=== PATIENT | female | born 1995 | race Caucasian/White ===

== ENCOUNTER 2017-02-05 14:02 | Inpatient (IN) | payer SELFPAY ==
[2017-02-05] MEDS ORDERED: NORMAL SALINE 1000 ML 1,000 ML IV ONE (14:59)
--- NOTE | 2017-02-05 15:00 | ER Document Report ---
ED Medical Screen (RME) - General Mode of Arrival: Ambulatory Information source: Patient TRAVEL OUTSIDE OF THE [place] IN LAST 30 DAYS: No - HPI Patient complains to provider of: Vomiting and shortness of breath Onset: This morning Associated Symptoms: Other - see notes above - Related Data Smoking: Other - former smoker Frequency of alcohol use: Occasional Drug Abuse: None <ANGEL ROMO - Last Filed: 02/05/17 15:29> <TY WEEKS - Last Filed: 02/05/17 21:19> - General Chief Complaint: High Blood Sugar Stated Complaint: DIFFICULTY BREATHING Time Seen by Provider: 02/05/17 14:52 Notes: 21-year-old female with history of diabetes mellitus type I presents to the ED complaining of vomiting, shortness of breath, increased urine output, and feeling faint this morning. Patient reports that she has been monitoring her blood glucose levels and they have been running high historically. Patient is unsure when she last checked her levels or when her last reading was 'HI'. Patient reports that she has asked her physician to change her insulin, but the physician says that is unnecessary. Patient denies abdominal pain. Patient also claims that she has been stressed lately which could be contributing to her elevated blood glucose. (ANGEL ROMO) - Related Data Allergies/Adverse Reactions: No Known Allergies Allergy (Verified 02/05/17 14:07) Past Medical History - General Information source: Patient - Social History Cigarette use (# per day): No Chew tobacco use (# tins/day): No Frequency of alcohol use: None Drug Abuse: None Family history: Reviewed & Not Pertinent Pulmonary Medical History: Denies: Hx Asthma Endocrine Medical History: Reports: Hx Diabetes Mellitus Type 1 Renal/ Medical History: Denies: Hx Peritoneal Dialysis GI Medical History: Denies: Hx Gastroesophageal Reflux Disease Past Surgical History: Reports: Hx Appendectomy - Immunizations Immunizations up to date: Yes Hx Diphtheria, Pertussis, Tetanus Vaccination: Yes <ANGEL ROMO - Last Filed: 02/05/17 15:29> Review of Systems - Review of Systems Constitutional: No symptoms reported EENT: No symptoms reported Cardiovascular: See HPI, Lightheaded Respiratory: See HPI, Short of breath Gastrointestinal: No symptoms reported. denies: Abdominal pain Genitourinary: See HPI, Frequency Female Genitourinary: No symptoms reported Musculoskeletal: No symptoms reported Skin: No symptoms reported Hematologic/Lymphatic: No symptoms reported Neurological/Psychological: See HPI, Other - stress -: Yes All other systems reviewed and negative <ANGEL ROMO - Last Filed: 02/05/17 15:29> Physical Exam - General General appearance: Alert In distress: None - HEENT Head: Normocephalic, Atraumatic Eyes: Normal Extraocular movements intact: Yes Pupils: PERRL Mouth/Lips: Other - lips cracked Mucous membranes: Dry - Respiratory Respiratory status: No respiratory distress Breath sounds: Normal - Cardiovascular Rhythm: Regular, Tachycardia - mild Murmur: No Friction rub: No Gallop: None auscultated - Abdominal Inspection: Normal Distension: No distension Bowel sounds: Normal Tenderness: Nontender - Neurological Neuro grossly intact: Yes Cognition: Confused - mild confusion on exam Orientation: AAOx4 <ANGEL ROMO - Last Filed: 02/05/17 15:29> Course - Laboratory Result Diagrams: 02/05/17 15:35 02/05/17 19:05 <TY WEEKS - Last Filed: 02/05/17 21:19> - Vital Signs Vital signs: Temp Pulse Resp BP Pulse Ox 98.2 F 83 18 109/68 100 02/05/17 19:54 02/05/17 19:54 02/05/17 19:54 02/05/17 19:54 02/05/17 19:54 - Laboratory Laboratory results interpreted by me: 02/05/17 02/05/17 02/05/17 15:09 15:35 15:35 RBC 5.64 H Hgb 16.2 H Hct 52.1 H MCHC 31.1 L RDW 15.6 H VBG pH VBG pCO2 VBG HCO3 Sodium 136.1 L Potassium 5.5 H Carbon Dioxide < 5 L* Glucose 343 H POC Glucose 383 H Direct Bilirubin 0.6 H Alkaline Phosphatase 154 H Total Protein 9.6 H Albumin 5.3 H Urine Protein Urine Glucose (UA) Urine Ketones 02/05/17 02/05/17 02/05/17 15:35 17:03 17:20 RBC Hgb Hct MCHC RDW VBG pH 7.05 L* VBG pCO2 23.7 L VBG HCO3 6.4 L Sodium Potassium Carbon Dioxide Glucose POC Glucose 310 H Direct Bilirubin Alkaline Phosphatase Total Protein Albumin Urine Protein 30 H Urine Glucose (UA) >=500 H Urine Ketones 80 H Doctor's Discharge <ANGEL ROMO - Last Filed: 02/05/17 15:29> <TY WEEKS - Last Filed: 02/05/17 21:19> - Discharge Clinical Impression: DKA (diabetic ketoacidoses) Scribe Documentation - Scribe Written by Scribe:: Sher Myrick, 02/05/2017 1552 acting as scribe for :: Julieta <ANGEL ROMO - Last Filed: 02/05/17 15:29>
[2017-02-05 16:09] LABS: ABSOLUTE BASOPHILS # (AUTO) 0.1 10^3/uL (0.0-0.2); ABSOLUTE LYMPHOCYTES (AUTO) 2.6 10^3/uL (0.5-4.7); ABSOLUTE MONOCYTES (AUTO) 0.4 10^3/uL (0.1-1.4); ABSOLUTE NEUT (AUTO) 6.7 10^3/uL (1.7-8.2); BASOPHILS % (AUTO) 0.7 % (0-2); EOSINOPHILS % (AUTO) 0.1 % (0-6); HEMATOCRIT 52.1 % (36.0-47.0); HEMOGLOBIN 16.2 g/dL (12.0-15.5); HGB HCT DIFFERENCE -3.5; LYMPHOCYTES % (AUTO) 26.8 % (13-45); MEAN CORPUSCULAR HEMOGLOBIN 28.8 pg (27.0-33.4); MEAN CORPUSCULAR HGB CONC 31.1 g/dL (32.0-36.0); MEAN CORPUSCULAR VOLUME 92 fl (80-97); MONOCYTES % (AUTO) 3.9 % (3-13); RED BLOOD COUNT 5.64 10^6/uL (3.72-5.28); RED CELL DISTRIBUTION WIDTH 15.6 % (11.5-14.0); SEGMENTED NEUTROPHILS % (AUTO) 68.5 % (42-78); WHITE BLOOD COUNT 9.8 10^3/uL (4.0-10.5)
[2017-02-05 16:14] LABS: APPEARANCE,URINE CLEAR; BILIRUBIN,URINE NEGATIVE (NEGATIVE); GLUCOSE, URINE >=500 mg/dL (NEGATIVE); KETONES,URINE 80 mg/dL (NEGATIVE); LEUKOCYTE ESTERASE,URINE NEGATIVE (NEGATIVE); NITRITE,URINE NEGATIVE (NEGATIVE); PROTEIN,URINE 30 mg/dL (NEGATIVE); URINE SPECIFIC GRAVITY 1.023; UROBILINOGEN,URINE NEGATIVE mg/dL (<2.0)
[2017-02-05 16:16] LABS: ALANINE AMINOTRANSFERASE 25 U/L (9-52); ALBUMIN 5.3 g/dL (3.5-5.0); ALKALINE PHOSPHATASE 154 U/L (38-126); ASPARTATE AMINO TRANSFERASE 23 U/L (14-36); BILIRUBIN,DIRECT 0.6 mg/dL (0.0-0.4); BILIRUBIN,TOTAL 0.6 mg/dL (0.2-1.3); BLOOD UREA NITROGEN 14 mg/dL (7-20); CALCIUM 9.2 mg/dL (8.4-10.2); CHLORIDE 100 mmol/L (98-107); CREATININE RESULT 0.62 mg/dL (0.52-1.25); GLUCOSE 343 mg/dL (75-110); POTASSIUM 5.5 mmol/L (3.6-5.0); SODIUM 136.1 mmol/L (137-145); TOTAL PROTEIN 9.6 g/dL (6.3-8.2)
[2017-02-05 16:26] LABS: CARBON DIOXIDE < 5 mmol/L (22-30)
[2017-02-05] MEDS ORDERED: INSULIN REG, HUMAN 100 UNIT/ML 3 ML VIAL (PYX) IV ONE ×2 (17:00→17:49)
--- NOTE | 2017-02-05 17:03 | ER Document Report ---
ED Blood Sugar Problem - General Chief Complaint: High Blood Sugar Stated Complaint: DIFFICULTY BREATHING Time Seen by Provider: 02/05/17 14:52 Mode of Arrival: Ambulatory Information source: Patient Notes: This is a 21-year-old female with type 1 diabetes and history of DKA who presents with high blood sugar and vomiting. She states that she feels similar to her prior episodes of DKA. She states she has felt poorly for the past few days but the vomiting became severe this morning. She has been unable to tolerate PO day. She states that at home her blood sugar has been running "high ". She reports compliance with her insulin regimen states that she takes 20 units of 70/30 twice daily. She did take her insulin this morning. She denies any fevers or chills. She has had a mild cough which is been nonproductive. No dysuria. Her last menstrual period was about 4 weeks ago. TRAVEL OUTSIDE OF THE [place] IN LAST 30 DAYS: No - Related Data Allergies/Adverse Reactions: No Known Allergies Allergy (Verified 02/05/17 14:07) Past Medical History - General Information source: Patient - Social History Smoking Status: Unknown if Ever Smoked Cigarette use (# per day): No Chew tobacco use (# tins/day): No Frequency of alcohol use: None Drug Abuse: None Family History: DM - On the mother's side. Patient has suicidal ideation: No Patient has homicidal ideation: No Pulmonary Medical History: Denies: Hx Asthma Endocrine Medical History: Reports: Hx Diabetes Mellitus Type 1 Renal/ Medical History: Denies: Hx Peritoneal Dialysis GI Medical History: Denies: Hx Gastroesophageal Reflux Disease Past Surgical History: Reports: Hx Appendectomy - Immunizations Immunizations up to date: Yes Hx Diphtheria, Pertussis, Tetanus Vaccination: Yes Hx Pneumococcal Vaccination: 06/25/13 Review of Systems - Review of Systems Constitutional: denies: Chills, Fever EENT: No symptoms reported Cardiovascular: No symptoms reported. denies: Chest pain Gastrointestinal: See HPI Genitourinary: No symptoms reported. denies: Dysuria Musculoskeletal: No symptoms reported Skin: No symptoms reported Hematologic/Lymphatic: No symptoms reported Neurological/Psychological: No symptoms reported Physical Exam - Vital signs Vitals: Temp Pulse Resp BP Pulse Ox 97.7 F 101 H 24 H 137/100 H 100 02/05/17 14:05 02/05/17 14:05 02/05/17 14:05 02/05/17 14:05 02/05/17 14:05 - Notes Notes: PHYSICAL EXAMINATION: GENERAL: somewhat ill appearing, alert and conversant HEAD: Atraumatic, normocephalic. EYES: Pupils equal round and reactive to light, extraocular movements intact, sclera anicteric, conjunctiva are normal. ENT: nares patent, oropharynx clear without exudates. Mucous membranes tachy NECK: Normal range of motion LUNGS: Breath sounds clear to auscultation bilaterally and equal. No wheezes rales or rhonchi. HEART: Regular rate and rhythm without murmurs ABDOMEN: Soft, mild diffuse TTP, normoactive bowel sounds. No guarding, no rebound. No masses appreciated. EXTREMITIES: Normal range of motion NEUROLOGICAL: Cranial nerves grossly intact. Normal speech, no gross focal motor or sensory deficits PSYCH: Normal mood, normal affect. SKIN: Warm, Dry, normal turgor, no rashes or lesions noted. Course - Vital Signs Vital signs: Temp Pulse Resp BP Pulse Ox 98.2 F 83 18 109/68 100 02/05/17 21:00 02/05/17 21:00 02/05/17 21:00 02/05/17 21:00 02/05/17 21:00 - Laboratory Result Diagrams: 02/05/17 15:35 02/05/17 22:35 Laboratory results interpreted by me: 02/05/17 02/05/17 02/05/17 15:09 15:35 15:35 RBC 5.64 H Hgb 16.2 H Hct 52.1 H MCHC 31.1 L RDW 15.6 H VBG pH VBG pCO2 VBG HCO3 Sodium 136.1 L Potassium 5.5 H Carbon Dioxide < 5 L* Glucose 343 H POC Glucose 383 H Direct Bilirubin 0.6 H Alkaline Phosphatase 154 H Total Protein 9.6 H Albumin 5.3 H Urine Protein Urine Glucose (UA) Urine Ketones 02/05/17 02/05/17 02/05/17 15:35 17:03 17:20 RBC Hgb Hct MCHC RDW VBG pH 7.05 L* VBG pCO2 23.7 L VBG HCO3 6.4 L Sodium Potassium Carbon Dioxide Glucose POC Glucose 310 H Direct Bilirubin Alkaline Phosphatase Total Protein Albumin Urine Protein 30 H Urine Glucose (UA) >=500 H Urine Ketones 80 H - Diagnostic Test Radiology reviewed: Reports reviewed Critical Care Note - Critical Care Note Total time excluding time spent on procedures (mins): 35 - minutes of critical care time spent in direct contact evaluating and reevaluating the patient, treating symptoms, reviewing labs and studies and speaking with family and consultants excluding any procedures Discharge - Discharge Clinical Impression: DKA (diabetic ketoacidoses) Qualifiers: Diabetes mellitus type: type 1 Diabetes mellitus complication detail: without coma Qualified Code(s): E10.10 - Type 1 diabetes mellitus with ketoacidosis without coma Condition: Serious Disposition: ADMITTED INPATIENT Admitting Provider: Hospitalist - Dr. Queen Unit Admitted: [facility]
[2017-02-05 17:30] LABS: VENOUS BLOOD BASE EXCESS -22.6 mmol/L; VENOUS BLOOD HCO3 6.4 mmol/L (20-32); VENOUS BLOOD PCO2 23.7 mmHg (35-63)
[2017-02-05 17:31] LABS: VENOUS BLOOD PH 7.05 (7.30-7.42)
[2017-02-05] MEDS ORDERED: NORMAL SALINE 1000 ML 1,000 ML IV PRN (18:19)
[2017-02-05] MEDS ORDERED: DEXTROSE 50%-WATER 25 GM/50 ML DISP.SYRIN IV PRN ×2 (18:19)
[2017-02-05] MEDS ORDERED: GLUCAGON,HUMAN RECOMB 1 MG INJ IM PRN (18:19)
[2017-02-05] MEDS ORDERED: DEXTROSE 40% GEL 15 GM TUBE PO PRN ×2 (18:19)
[2017-02-05] MEDS ORDERED: DEXTROSE 5%-1/2 NORMAL SALINE 1,000 ML IV PRN (18:24)
[2017-02-05] MEDS ORDERED: ACETAMINOPHEN 325 MG TABLET PO PRN (18:26)
[2017-02-05] MEDS ORDERED: ONDANSETRON HCL INJ/PF 4 MG/2 ML SDV IV PRN (18:26)
--- NOTE | 2017-02-05 18:26 | RADIOLOGY REPORT (SQ) ---
EXAM DESCRIPTION: CHEST SINGLE VIEW COMPLETED DATE/TIME: 02/05/2017 6:16 pm REASON FOR STUDY: DKA COMPARISON: 10/31/2015 EXAM PARAMETERS: NUMBER OF VIEWS: One view. TECHNIQUE: Single frontal radiographic view of the chest acquired. RADIATION DOSE: NA LIMITATIONS: None. FINDINGS: LUNGS AND PLEURA: No opacities, masses or pneumothorax. No pleural effusion. MEDIASTINUM AND HILAR STRUCTURES: No masses. Contour normal. HEART AND VASCULAR STRUCTURES: Heart normal in size. Normal vasculature. BONES: No acute findings. HARDWARE: None in the chest. OTHER: No other significant finding. IMPRESSION: NO ACUTE RADIOGRAPHIC FINDING IN THE CHEST. TECHNICAL DOCUMENTATION: JOB ID: [id number]
--- NOTE | 2017-02-05 18:48 | PDOC H&P ---
History of Present Illness Admission Date/PCP: 02/05/17 18:06 Patient complains of: Nausea and vomiting History of Present Illness: COLEEN ADAMS is a 21 year old female with history of insulin-dependent diabetes mellitus, presents to the hospital because of nausea and vomiting of one days duration. There is no dysuria urgency or frequency. No diarrhea or constipation. No vaginal discharge or bleeding. Patient is a little lightheaded and dizzy. The patient apparently does not see her physician for follow-up. She had history of hydradenitis suppurativa on her axilla as well as on the groin and in the breast in the past but currently denies having any rash or skin infection at all. Patient reports that she can refill her 7030 insulin [id number]. Her sugar ranges between 300-400 on a daily basis. She attributes this elevation to a lot of stress. She denies sinus congestion or headache. There is no sore throat. She has occasional cough but nothing more than usual. She denies any chest congestion. She was started to breathe hard this morning but denies any specific chest congestion or shortness of breath. Patient reports that she had similar episodes in the past when she had DKA. She presents to the emergency room because of the nausea and vomiting that happened earlier today. In the ER her pH was 7.05. Anion gap is greater than 30. Blood sugar however is 343. 4 units of intravenous insulin bolus was given and the patient was started on intravenous fluid and intravenous drip of insulin was ordered by the emergency room attending. The patient was then referred for admission Past Medical History Past Medical History: Medication reconciliation pending verification from the patient's pharmacist Pulmonary Medical History: Denies: Asthma Endocrine Medical History: Reports: Diabetes Mellitus Type 1 GI Medical History: Denies: Gastroesophageal Reflux Disease Skin Medical History: Reports: Other - Hydradenitis suppurativa Past Surgical History Past Surgical History: Reports: Appendectomy, Orthopedic Surgery - B/L FEET, Other - Laser surgery to the high Social History Information Source: Patient Smoking Status: Former Smoker Frequency of Alcohol Use: None Hx Recreational Drug Use: No Drugs: None Hx Prescription Drug Abuse: No Family History Family History: DM - On the mother's side. Parental Family History Reviewed: Yes Children Family History Reviewed: Yes Sibling(s) Family History Reviewed.: Yes Medication/Allergy Home Medications: Hum Insulin NPH/Reg Insulin Hm [Insulin 70-30 (NPH/Reg) 100 unit/mL] 20 unit SUBCUT BIDACBS #1 pkg 05/04/16 Allergies/Adverse Reactions: No Known Allergies Allergy (Verified 02/05/17 14:07) Review of Systems Constitutional: PRESENT: weakness - Generalized. ABSENT: chills, fever(s), headache(s), night sweats, weight gain, weight loss Eyes: ABSENT: visual disturbances Ears: ABSENT: hearing changes Nose, Mouth, and Throat: ABSENT: mouth pain, sore throat Cardiovascular: ABSENT: chest pain, dyspnea on exertion, edema, orthropnea, palpitations Respiratory: PRESENT: cough - Minimal, dyspnea. ABSENT: hemoptysis Gastrointestinal: ABSENT: abdominal pain, coffee ground emesis, constipation, diarrhea, dysphagia, hematemesis, hematochezia, melena, nausea, vomiting Genitourinary: ABSENT: difficulty urinating, dysuria, hematuria Musculoskeletal: ABSENT: joint swelling Integumentary: ABSENT: pruritus, rash, wounds Neurological: PRESENT: dizziness. ABSENT: abnormal gait, abnormal speech, confusion, focal weakness, syncope Psychiatric: ABSENT: anxiety, depression, homidical ideation, suicidal ideation Endocrine: ABSENT: cold intolerance, heat intolerance, polydipsia, polyuria Hematologic/Lymphatic: ABSENT: easy bleeding, easy bruising Physical Exam Vital Signs: Temp Pulse Resp BP Pulse Ox 97.7 F 101 H 20 137/100 H 99 02/05/17 14:06 02/05/17 14:06 02/05/17 17:10 02/05/17 14:06 02/05/17 14:06 General appearance: PRESENT: no acute distress, cooperative, well-developed, well-nourished Head exam: PRESENT: atraumatic, normocephalic Eye exam: PRESENT: conjunctiva pink, EOMI, PERRLA. ABSENT: scleral icterus Ear exam: PRESENT: normal external ear exam Mouth exam: PRESENT: dry mucosa, neck supple, tongue midline Neck exam: ABSENT: carotid bruit, JVD, lymphadenopathy, thyromegaly Respiratory exam: PRESENT: clear to auscultation stephan. ABSENT: rales, rhonchi, wheezes Cardiovascular exam: PRESENT: RRR. ABSENT: diastolic murmur, rubs, systolic murmur Pulses: PRESENT: normal dorsalis pedis pul Vascular exam: PRESENT: normal capillary refill GI/Abdominal exam: PRESENT: normal bowel sounds, soft. ABSENT: distended, guarding, mass, organolmegaly, rebound, tenderness Rectal exam: PRESENT: deferred Extremities exam: PRESENT: full ROM. ABSENT: calf tenderness, clubbing, pedal edema Neurological exam: PRESENT: alert, awake, oriented to person, oriented to place , oriented to time, oriented to situation, CN II-XII grossly intact. ABSENT: motor sensory deficit Psychiatric exam: PRESENT: appropriate affect, normal mood. ABSENT: homicidal ideation, suicidal ideation Skin exam: PRESENT: dry, intact, warm. ABSENT: cyanosis, rash Results Impressions: Chest X-Ray 02/05/17 17:45 IMPRESSION: NO ACUTE RADIOGRAPHIC FINDING IN THE CHEST. Assessment & Plan - Diagnosis (1) DKA (diabetic ketoacidoses) Qualifiers: Diabetes mellitus type: type 1 Diabetes mellitus complication detail: without coma Qualified Code(s): E10.10 - Type 1 diabetes mellitus with ketoacidosis without coma Is this a current diagnosis for this admission?: Yes (2) Hyperkalemia Is this a current diagnosis for this admission?: Yes (3) Dehydration Is this a current diagnosis for this admission?: Yes - Time Time Spent: 50 to 70 Minutes - Inpatient Certification Based on my medical assessment, after consideration of the patient's comorbidities, presenting symptoms, or acuity I expect that the services needed warrant INPATIENT care.: Yes I certify that my determination is in accordance with my understanding of Medicare's requirements for reasonable and necessary INPATIENT services [42 CFR 412.3e].: Yes Medical Necessity: Significant Comorbidiites Make Outpatient Treatment Too Risky , Need Close Monitoring Due to Risk of Patient Decompensation, Need For IV Fluids, Need For Continuous Telemetry Monitoring, Risk of Complication if Not Cared For in Hospital, Risk of Diagnosis Which Will Require Inpatient Eval/Care/ Monitoring Post Hospital Care: D/C Customer Servicer Documentation - Plan Summary Plan Summary: The patient will be admitted to [facility]. We will hydrate the patient with normal saline. We will begin insulin drip and serially monitor chemistries every 4 hours. I expect her potassium to trend down with insulin drip and IV hydration. In the meantime his blood sugar reaches below 250 we will change IV fluid to dextrose containing solution. We will continue current management until anion gap normalized. In the meantime I will try the patient on liquid diet. DVT prophylaxis with Lovenox will be placed. We will get diabetic teaching involved. Further testing depends on the initial evaluations outlined above.
[2017-02-05] MEDS: NORMAL SALINE 100 ML with INSULIN REGULAR, HUMAN 100 UNIT IV PRN ×4 (19:15→20:41)
[2017-02-05 19:31] LABS: BLOOD UREA NITROGEN 12 mg/dL (7-20); CALCIUM 9.2 mg/dL (8.4-10.2); CHLORIDE 104 mmol/L (98-107); CREATININE RESULT 0.55 mg/dL (0.52-1.25); GLUCOSE 227 mg/dL (75-110); POTASSIUM 5.2 mmol/L (3.6-5.0); SODIUM 139.9 mmol/L (137-145)
[2017-02-05 19:35] LABS: URINE BARBITURATES SCREEN NEGATIVE; URINE METHADONE SCREEN NEGATIVE; URINE OPIATES LOW NEGATIVE; URINE PHENCYCLIDINE SCREEN NEGATIVE
[2017-02-05 19:45] LABS: CARBON DIOXIDE < 5 mmol/L (22-30)
[2017-02-05] MEDS ORDERED: NORMAL SALINE 1000 ML 2,000 ML IV ONE (19:57)
[2017-02-05 20:13] LABS: ADD ON TESTING BLD IN LAB ACKNOWLEDGE
[2017-02-05 20:28] LABS: MAGNESIUM 2.1 mg/dL (1.6-2.3)
[2017-02-05 20:30] LABS: ARTERIAL BLOOD BASE EXCESS -18.4 mmol/L; ARTERIAL BLOOD O2 SATURATION 97.8 % (94-98)
[2017-02-05] MEDS: DEXTROSE 5%-NORMAL SALINE 1,000 ML IV PRN (20:41)
[2017-02-05 23:08] LABS: BLOOD UREA NITROGEN 9 mg/dL (7-20); CALCIUM 7.1 mg/dL (8.4-10.2); CHLORIDE 114 mmol/L (98-107); CREATININE RESULT 0.42 mg/dL (0.52-1.25); GLUCOSE 198 mg/dL (75-110)
[2017-02-05 23:13] LABS: ANION GAP 16 (5-19)
[2017-02-05 23:29] LABS: POTASSIUM 3.7 mmol/L (3.6-5.0)
[2017-02-05 23:31] LABS: CARBON DIOXIDE 9 mmol/L (22-30)
[2017-02-06] MEDS ORDERED: POTASSI CL 20 MEQ/50 ML RIDER 20 MEQ/50 ML RTUPB IV ONE ×2 (00:37→04:08)
[2017-02-06] MEDS: DEXTROSE 5%-NORMAL SALINE 1,000 ML IV PRN ×2 (01:27→06:43)
[2017-02-06 03:13] LABS: ANION GAP 9 (5-19); BLOOD UREA NITROGEN 8 mg/dL (7-20); CALCIUM 7.1 mg/dL (8.4-10.2); CARBON DIOXIDE 12 mmol/L (22-30); CHLORIDE 117 mmol/L (98-107); CREATININE RESULT 0.36 mg/dL (0.52-1.25); GLUCOSE 153 mg/dL (75-110); POTASSIUM 3.6 mmol/L (3.6-5.0); SODIUM 138.4 mmol/L (137-145)
[2017-02-06] MEDS: LANSOPRAZOLE 30 MG TAB.RAP.DR PO SCH ×2 (05:03→16:22)
[2017-02-06 06:55] LABS: ABSOLUTE EOSINOPHILS # (AUTO) 0.1 10^3/uL (0.0-0.6); ABSOLUTE LYMPHOCYTES (AUTO) 3.1 10^3/uL (0.5-4.7); ABSOLUTE MONOCYTES (AUTO) 0.7 10^3/uL (0.1-1.4); ABSOLUTE NEUT (AUTO) 5.6 10^3/uL (1.7-8.2); BASOPHILS % (AUTO) 0.5 % (0-2); EOSINOPHILS % (AUTO) 0.8 % (0-6); HEMATOCRIT 37.4 % (36.0-47.0); HGB HCT DIFFERENCE -1.4; LYMPHOCYTES % (AUTO) 33.1 % (13-45); MEAN CORPUSCULAR HEMOGLOBIN 28.6 pg (27.0-33.4); MEAN CORPUSCULAR VOLUME 89 fl (80-97); MONOCYTES % (AUTO) 7.2 % (3-13); RED BLOOD COUNT 4.18 10^6/uL (3.72-5.28); RED CELL DISTRIBUTION WIDTH 15.1 % (11.5-14.0); SEGMENTED NEUTROPHILS % (AUTO) 58.4 % (42-78); WHITE BLOOD COUNT 9.5 10^3/uL (4.0-10.5)
[2017-02-06 07:15] LABS: ANION GAP 8 (5-19); BLOOD UREA NITROGEN 8 mg/dL (7-20); CALCIUM 7.4 mg/dL (8.4-10.2); CARBON DIOXIDE 14 mmol/L (22-30); CHLORIDE 118 mmol/L (98-107); CREATININE RESULT 0.35 mg/dL (0.52-1.25); GLUCOSE 87 mg/dL (75-110); POTASSIUM 3.7 mmol/L (3.6-5.0); SODIUM 139.6 mmol/L (137-145)
[2017-02-06] MEDS: ENOXAPARIN SODIUM INJ 40 MG/0.4 ML DISP.SYRIN SUBCUT SCH (08:11)
--- NOTE | 2017-02-06 09:14 | EKG REPORT ---
SEVERITY:- BORDERLINE ECG - SINUS RHYTHM BORDERLINE PROLONGED QT INTERVAL : Confirmed by: Rodriguez Pittman 06-Feb-2017 09:13:23
[2017-02-06] MEDS ORDERED: INSULIN REG, HUMAN 100 UNIT/ML 3 ML VIAL (PYX) SUBCUT PRN (09:20)
--- NOTE | 2017-02-06 09:34 | PDOC PROGRESS REPORT ---
Subjective Progress Note for:: 02/06/17 Subjective:: Patient is feeling better this morning. No nausea or vomiting reported. Patient wants to eat solid food. No reported respiratory distress or temperature spikes. Anion gap is now normal. Blood sugar below 200. She is on dextrose containing IV fluids. Physical Exam Vital Signs: Temp Pulse Resp BP Pulse Ox 98.3 F 83 12 95/52 L 98 02/06/17 07:09 02/06/17 07:09 02/06/17 07:09 02/06/17 07:09 02/06/17 07:09 Intake & Output 02/05/17 02/06/17 02/07/17 06:59 06:59 06:59 Intake Total 4147 Balance 4147 Weight 58.9 kg General appearance: PRESENT: no acute distress, cooperative Head exam: PRESENT: normocephalic Eye exam: PRESENT: EOMI Mouth exam: PRESENT: moist, neck supple Neck exam: ABSENT: JVD Respiratory exam: PRESENT: clear to auscultation stephan, unlabored. ABSENT: rhonchi, wheezes Cardiovascular exam: PRESENT: RRR. ABSENT: gallop GI/Abdominal exam: PRESENT: normal bowel sounds, soft. ABSENT: distended, tenderness Extremities exam: ABSENT: pedal edema Neurological exam: PRESENT: alert, awake, oriented to situation Skin exam: PRESENT: dry, warm. ABSENT: cyanosis Results Laboratory Results: 02/06/17 06:44 02/06/17 06:44 02/05/17 02/05/17 02/05/17 19:05 19:05 19:05 WBC RBC Hgb Hct MCV MCH MCHC RDW Plt Count Seg Neutrophils % Lymphocytes % Monocytes % Eosinophils % Basophils % Absolute Neutrophils Absolute Lymphocytes Absolute Monocytes Absolute Eosinophils Absolute Basophils Carbonic Acid HCO3/H2CO3 Ratio ABG pH ABG pCO2 ABG pO2 ABG HCO3 ABG O2 Saturation ABG Base Excess FiO2 Sodium 139.9 Potassium 5.2 H Chloride 104 Carbon Dioxide < 5 L* Anion Gap [employer] BUN 12 Creatinine 0.55 Est GFR ( Amer) > 60 Est GFR (Non-Af Amer) > 60 Glucose 227 H Calcium 9.2 Magnesium 2.1 TSH 0.57 02/05/17 02/05/17 02/06/17 20:20 22:35 02:30 WBC RBC Hgb Hct MCV MCH MCHC RDW Plt Count Seg Neutrophils % Lymphocytes % Monocytes % Eosinophils % Basophils % Absolute Neutrophils Absolute Lymphocytes Absolute Monocytes Absolute Eosinophils Absolute Basophils Carbonic Acid 0.59 L HCO3/H2CO3 Ratio 12:1 ABG pH 7.20 L* ABG pCO2 19.7 L* ABG pO2 124.0 H ABG HCO3 7.5 L ABG O2 Saturation 97.8 ABG Base Excess -18.4 FiO2 ROOM AIR Sodium 139.0 138.4 Potassium 3.7 D 3.6 Chloride 114 H 117 H Carbon Dioxide 9 L* 12 L Anion Gap 16 9 BUN 9 8 Creatinine 0.42 L 0.36 L Est GFR ( Amer) > 60 > 60 Est GFR (Non-Af Amer) > 60 > 60 Glucose 198 H 153 H Calcium 7.1 L 7.1 L Magnesium TSH 02/06/17 02/06/17 06:44 06:44 WBC 9.5 RBC 4.18 Hgb 12.0 D Hct 37.4 MCV 89 MCH 28.6 MCHC 32.0 RDW 15.1 H Plt Count 213 Seg Neutrophils % 58.4 Lymphocytes % 33.1 Monocytes % 7.2 Eosinophils % 0.8 Basophils % 0.5 Absolute Neutrophils 5.6 Absolute Lymphocytes 3.1 Absolute Monocytes 0.7 Absolute Eosinophils 0.1 Absolute Basophils 0.0 Carbonic Acid HCO3/H2CO3 Ratio ABG pH ABG pCO2 ABG pO2 ABG HCO3 ABG O2 Saturation ABG Base Excess FiO2 Sodium 139.6 Potassium 3.7 Chloride 118 H Carbon Dioxide 14 L Anion Gap 8 BUN 8 Creatinine 0.35 L Est GFR ( Amer) > 60 Est GFR (Non-Af Amer) > 60 Glucose 87 Calcium 7.4 L Magnesium TSH Impressions: Chest X-Ray 02/05/17 17:45 IMPRESSION: NO ACUTE RADIOGRAPHIC FINDING IN THE CHEST. Assessment & Plan - Diagnosis (1) DKA (diabetic ketoacidoses) Qualifiers: Diabetes mellitus type: type 1 Diabetes mellitus complication detail: without coma Qualified Code(s): E10.10 - Type 1 diabetes mellitus with ketoacidosis without coma Is this a current diagnosis for this admission?: Yes (2) Hyperkalemia Is this a current diagnosis for this admission?: Yes (3) Dehydration Is this a current diagnosis for this admission?: Yes - Time Time Spent with patient: 25-34 minutes - Plan Summary Plan Summary: We will transition the patient to subcutaneous insulin. I will increase her basal insulin however. We will give prandial coverage with Humalog. Transition to before meals at bedtime Accu-Cheks with SSI coverage.and advance her diet. Discontinue dextrose containing IV fluids went off the insulin drip. Continue to monitor electrolytes. Patient reports unable to afford Lantus or Levemir and still prefers to 70/30 insulin.
[2017-02-06] MEDS: DOCUSATE SODIUM 100 MG CAPSULE PO SCH ×2 (09:56→17:28)
[2017-02-06] MEDS ORDERED: HUM INSULIN NPH/REG INSULIN HM 100 UNIT/1 ML 3 ML SUBCUT ONE (10:00)
[2017-02-06 11:04] LABS: ANION GAP 9 (5-19); BLOOD UREA NITROGEN 7 mg/dL (7-20); CALCIUM 7.6 mg/dL (8.4-10.2); CARBON DIOXIDE 15 mmol/L (22-30); CHLORIDE 115 mmol/L (98-107); CREATININE RESULT 0.36 mg/dL (0.52-1.25); GLUCOSE 86 mg/dL (75-110); POTASSIUM 3.2 mmol/L (3.6-5.0); SODIUM 138.8 mmol/L (137-145)
[2017-02-06] MEDS: INSULIN LISPRO 100 UNIT/ML 3 ML VIAL SUBCUT SCH ×2 (11:05→16:02)
[2017-02-06] MEDS: NORMAL SALINE 1000 ML 1,000 ML IV PRN ×2 (15:59→23:15)
[2017-02-06] MEDS: HUM INSULIN NPH/REG INSULIN HM 100 UNIT/1 ML 3 ML SUBCUT SCH (16:03)
[2017-02-07] MEDS: LANSOPRAZOLE 30 MG TAB.RAP.DR PO SCH (06:22)
[2017-02-07] MEDS: HUM INSULIN NPH/REG INSULIN HM 100 UNIT/1 ML 3 ML SUBCUT SCH (08:20)
[2017-02-07] MEDS: INSULIN LISPRO 100 UNIT/ML 3 ML VIAL SUBCUT SCH ×2 (08:23→11:06)
[2017-02-07] MEDS: ENOXAPARIN SODIUM INJ 40 MG/0.4 ML DISP.SYRIN SUBCUT SCH (08:25)
--- NOTE | 2017-02-07 10:43 | PDOC DISCHARGE SUMMARY ---
General - Admit/Disc Date/PCP Admission Date/Primary Care Provider: 02/05/17 18:26 Discharge Date: 02/07/17 - Discharge Diagnosis (1) DKA (diabetic ketoacidoses) Is this a current diagnosis for this admission?: Yes (2) Hyperkalemia Is this a current diagnosis for this admission?: Yes (3) Dehydration Is this a current diagnosis for this admission?: Yes - Additional Information Resuscitation Status: Full Code Discharge Diet: Diabetic - No concentrated sweets Discharge Activity: Activity As Tolerated, Balance Activity w/Rest Home Medications: Hum Insulin NPH/Reg Insulin Hm [Insulin 70-30 (NPH/Reg) 100 unit/mL] 25 unit SUBCUT BIDACBS unit 02/07/17 Insulin Lispro [Humalog Insulin (Lispro) 100 unit/mL] 8 unit SUBCUT AC 30 Days 02/07/17 Additional Information: Measured blood sugar 3 times a day and record bring to next physician visit. History of Present Illness Patient complains of: Nausea and vomiting History of Present Illness: COLEEN ADAMS is a 21 year old female with history of insulin-dependent diabetes mellitus, presents to the hospital because of nausea and vomiting of one days duration. There is no dysuria urgency or frequency. No diarrhea or constipation. No vaginal discharge or bleeding. Patient is a little lightheaded and dizzy. The patient apparently does not see her physician for follow-up. She had history of hydradenitis suppurativa on her axilla as well as on the groin and in the breast in the past but currently denies having any rash or skin infection at all. Patient reports that she can refill her 7030 insulin [id number]. Her sugar ranges between 300-400 on a daily basis. She attributes this elevation to a lot of stress. She denies sinus congestion or headache. There is no sore throat. She has occasional cough but nothing more than usual. She denies any chest congestion. She was started to breathe hard this morning but denies any specific chest congestion or shortness of breath. Patient reports that she had similar episodes in the past when she had DKA. She presents to the emergency room because of the nausea and vomiting that happened earlier today. In the ER her pH was 7.05. Anion gap is greater than 30. Blood sugar however is 343. 4 units of intravenous insulin bolus was given and the patient was started on intravenous fluid and intravenous drip of insulin was ordered by the emergency room attending. The patient was then referred for admission Hospital Course Hospital Course: The patient was admitted to [facility]. DKA protocol was followed. The patient was started on insulin drip as well as intravenous fluid with normal saline. Blood sugars were monitored hourly and insulin drip was titrated. When blood sugar falls below 250 normal saline was shifted to D5 half-normal saline and the insulin drip was continued. Her anion gap and electrolytes were monitored. Potassium was replaced. Anion gap eventually normalized. Insulin drip was discontinued and the patient's diet was advanced and she was started on subcutaneous insulin. Her basal insulin was increased compared to her home dose. She was likewise started on prandial coverage. Her blood sugar eventually improved she eventually was discharged home with instructions to continue current insulin regimen and follow-up with a her primary care physician for titration. She was encouraged to increase oral fluid intake. Physical Exam Vital Signs: Temp Pulse Resp BP Pulse Ox 98.0 F 88 18 116/78 100 02/07/17 07:32 02/07/17 07:32 02/07/17 07:32 02/07/17 07:32 02/07/17 07:32 Intake & Output 02/06/17 02/07/17 02/08/17 06:59 06:59 06:59 Intake Total 4147 2604 Output Total 0 Balance 4147 2604 Weight 58.9 kg 60.2 kg General appearance: PRESENT: no acute distress, cooperative Head exam: PRESENT: normocephalic Eye exam: PRESENT: conjunctiva pink, EOMI Mouth exam: PRESENT: moist, neck supple Neck exam: ABSENT: JVD Respiratory exam: PRESENT: clear to auscultation stephan. ABSENT: rhonchi, wheezes Cardiovascular exam: PRESENT: RRR. ABSENT: gallop GI/Abdominal exam: PRESENT: normal bowel sounds, soft. ABSENT: distended, tenderness Extremities exam: ABSENT: pedal edema Neurological exam: PRESENT: alert, awake, oriented to person, oriented to place , oriented to time, oriented to situation Skin exam: PRESENT: dry, warm. ABSENT: cyanosis Results Laboratory Results: 02/06/17 06:44 02/06/17 10:30 02/06/17 10:30 Sodium 138.8 Potassium 3.2 L Chloride 115 H Carbon Dioxide 15 L Anion Gap 9 BUN 7 Creatinine 0.36 L Est GFR ( Amer) > 60 Est GFR (Non-Af Amer) > 60 Glucose 86 Calcium 7.6 L Impressions: Chest X-Ray 02/05/17 17:45 IMPRESSION: NO ACUTE RADIOGRAPHIC FINDING IN THE CHEST. Qualifiers [place]INT BEING DISCHARGED WITH ANY OF THE FOLLOWING DIAGNOSIS?: No Plan Discharge Plan: Follow-up with primary care physician in 1 week. Time Spent: Less than 30 Minutes
[2017-02-07] MEDS ORDERED: POTASSIUM CHLORIDE 10 MEQ TABLET.SA PO ONE (11:00)
[2017-02-07] MEDS: DOCUSATE SODIUM 100 MG CAPSULE PO SCH (11:06)
[2017-02-07 11:17] VITALS: BP 111/65
== END 2017-02-07 12:02 | disposition home or self-care (01) | DRG 639 ==
LOC: ER 14:02 → EH 18:06 → UNDOADMIN 18:06 → EH 18:26 → 3S 19:25 → EH 19:25
DX: E10.10 Type 1 diabetes mellitus with ketoacidosis without coma (principal); E87.5 Hyperkalemia; E86.0 Dehydration; Z90.49 Acquired absence of other specified parts of digestive tract; Z87.891 Personal history of nicotine dependence; Z79.4 Long term (current) use of insulin; Z83.3 Family history of diabetes mellitus
CPT/HCPCS: 36415; 36600; 71010; 80048; 80053; 80307; 81001; 82803; 82962; 83036; 83735; 84443; 84703; 85025; 93005; 93010; 96360; 99291; J1650; J1815; J3480; J3490; J7030

== ENCOUNTER 2018-07-02 19:34 | Inpatient (IN) | payer OTHER ==
[2018-07-02] MEDS ORDERED: RINGERS SOLUTION,LACTATED 2,000 ML IV PRN (20:05)
--- NOTE | 2018-07-02 20:12 | ER Document Report ---
ED General - General Chief Complaint: High Blood Sugar Stated Complaint: BLOOD SUGAR ISSUE Time Seen by Provider: 07/02/18 19:50 Mode of Arrival: Ambulatory Information source: Patient Notes: Patient is a 22-year-old insulin-dependent female who presents to the emergency department with 1 day of vomiting. She states she has not been feeling well for the past two weeks, but started vomiting yesterday. States she has been taking her NovoLog and Lantus as prescribed. She states she has been under some stress due to work and going through a divorce. Denies fevers, diarrhea, abdominal pain, and shortness of breath. TRAVEL OUTSIDE OF THE [place] IN LAST 30 DAYS: No - Related Data Allergies/Adverse Reactions: No Known Allergies Allergy (Verified 02/05/17 14:07) Past Medical History - General Information source: Patient - Social History Smoking Status: Never Smoker Frequency of alcohol use: None Drug Abuse: None Lives with: Alone Family History: DM - On the mother's side. Pulmonary Medical History: Denies: Hx Asthma Endocrine Medical History: Reports: Hx Diabetes Mellitus Type 1 Renal/ Medical History: Denies: Hx Peritoneal Dialysis GI Medical History: Denies: Hx Gastroesophageal Reflux Disease Past Surgical History: Reports: Hx Appendectomy, Hx Orthopedic Surgery - B/L FEET, Other - Laser surgery to the [facility] - Immunizations Immunizations up to date: Yes Hx Diphtheria, Pertussis, Tetanus Vaccination: Yes Hx Pneumococcal Vaccination: 06/25/13 Review of Systems - Review of Systems Notes: REVIEW OF SYSTEMS: CONSTITUTIONAL : See HPI. EENT: Denies eye, ear, throat, or mouth pain, discharge, or symptoms. Denies nasal or sinus congestion. CARDIOVASCULAR: Denies chest pain. RESPIRATORY: Denies shortness of breath, cough, congestion, difficulty breathing , or wheezing. GASTROINTESTINAL: See HPI. GENITOURINARY: Denies difficulty urinating, burning, blood in urine, urgency or frequency. MUSCULOSKELETAL: Denies neck and back pain. Denies joint pain or swelling. SKIN: Denies rash, itchiness, or lesions HEMATOLOGIC : Denies easy bruising or bleeding. LYMPHATIC: Denies swollen, painful, enlarged glands. NEUROLOGICAL: Denies no numbness or tingling denies weakness. Denies headache. Denies altered mental status. Denies alteration in speech. PSYCHIATRIC: Denies stress, anxiety, alteration in sleep patterns, or depression. All other systems reviewed and negative. Physical Exam - Vital signs Vitals: Temp Pulse Resp BP Pulse Ox 98.2 F 106 H 18 134/85 H 100 07/02/18 19:39 07/02/18 19:39 07/02/18 19:39 07/02/18 19:39 07/02/18 19:39 - Notes Notes: PHYSICAL EXAMINATION: GENERAL: Appears well, healthy, well-nourished, no acute distress. HEAD: Normocephalic, atraumatic. EYES: PERRL, conjunctiva normal, all extraocular movements intact, sclera nonicteric ENT: Moist mucous membranes. NECK: Supple, no noticeable swelling, redness, rash. Normal range of motion. LUNGS: Equal breath sounds bilaterally and clear to auscultation. No wheezes rales or rhonchi. CARDIOVASCULAR: S1-S2, tachycardic, regular rhythm. Radial pulses 2+, normal. ABDOMEN: Normoactive bowel sounds. Soft, nontender, no guarding, no rebound tenderness, and no masses palpated. EXTREMITIES: Normal strength and range of motion, no pitting or edema. No cyanosis. NEUROLOGICAL: Moves all extremities upon command. Strength 5/5 in all extremities. PSYCH: Normal mood, normal affect. SKIN: Warm, dry. No rash, lesions, ulcerations noted. Normal skin turgor. Course - Re-evaluation Re-evalutation: 07/02/18 20:11 Patient's venous blood gas shows a metabolic acidosis. Her Accu-Check is 514. She will be started on an insulin drip and given 2 L of lactated Ringer's for hydration. Will also be started on every hour Accu-Checks. 07/02/18 21:30 Patient's laboratory studies are back and her CO2 is 7 with a blood glucose of 519. Her urine is positive for ketones and glucose. 07/02/18 21:[address] Lawson for admission. Will await for call back. 07/02/18 21:[address] Lawson, patient will be admitted to [facility]. - Vital Signs Vital signs: Temp Pulse Resp BP Pulse Ox 97.3 F 97 20 100/64 99 07/03/18 04:25 07/03/18 04:25 07/03/18 04:25 07/03/18 04:25 07/03/18 04:25 - Laboratory Result Diagrams: 07/02/18 20:09 07/03/18 02:50 Laboratory results interpreted by me: 07/02/18 07/02/18 07/02/18 19:55 20:00 20:09 RDW 17.8 H VBG pH VBG pCO2 VBG HCO3 Sodium Potassium Chloride Carbon Dioxide Anion Gap Glucose POC Glucose 514 H* Alkaline Phosphatase Total Protein Urine Glucose (UA) >=500 H Urine Ketones 80 H Urine Blood SMALL H 07/02/18 07/02/18 07/02/18 20:09 20:09 21:15 RDW VBG pH 7.19 L* VBG pCO2 20.4 L VBG HCO3 7.6 L Sodium 134.7 L Potassium 5.2 H Chloride 97 L Carbon Dioxide 7 L* Anion Gap 31 H Glucose 519 H* POC Glucose 471 H* Alkaline Phosphatase 255 H Total Protein 8.3 H Urine Glucose (UA) Urine Ketones Urine Blood Critical Care Note - Critical Care Note Total time excluding time spent on procedures (mins): 35 - DKA Comments: Critical care time spent with diabetic ketoacidosis patient with multiple fluid infusions, insulin drip, multiple re-evaluations, and reviewing medical record. Consultation and admission to the hospital. Discharge - Discharge Clinical Impression: Diabetic ketoacidosis, Hyperkalemia Disposition: ADMITTED INPATIENT Admitting Provider: Hospitalist Unit Admitted: IMCU
[2018-07-02 20:20] LABS: APPEARANCE,URINE CLEAR; BILIRUBIN,URINE NEGATIVE (NEGATIVE); COLOR,URINE STRAW; GLUCOSE, URINE >=500 mg/dL (NEGATIVE); KETONES,URINE 80 mg/dL (NEGATIVE); LEUKOCYTE ESTERASE,URINE NEGATIVE (NEGATIVE); NITRITE,URINE NEGATIVE (NEGATIVE); PROTEIN,URINE NEGATIVE (NEGATIVE); URINE SPECIFIC GRAVITY 1.027; UROBILINOGEN,URINE NEGATIVE mg/dL (<2.0)
[2018-07-02 20:26] LABS: VENOUS BLOOD BASE EXCESS -18.6 mmol/L; VENOUS BLOOD HCO3 7.6 mmol/L (20-32); VENOUS BLOOD PCO2 20.4 mmHg (35-63)
[2018-07-02 20:27] LABS: VENOUS BLOOD PH 7.19 (7.30-7.42)
[2018-07-02 20:30] LABS: ABSOLUTE BASOPHILS # (AUTO) 0.1 10^3/uL (0.0-0.2); ABSOLUTE LYMPHOCYTES (AUTO) 2.4 10^3/uL (0.5-4.7); ABSOLUTE MONOCYTES (AUTO) 0.3 10^3/uL (0.1-1.4); EOSINOPHILS % (AUTO) 0.1 % (0-6); HEMATOCRIT 43.3 % (36.0-47.0); HEMOGLOBIN 13.9 g/dL (12.0-15.5); LYMPHOCYTES % (AUTO) 24.2 % (13-45); MEAN CORPUSCULAR HEMOGLOBIN 30.7 pg (27.0-33.4); MEAN CORPUSCULAR HGB CONC 32.1 g/dL (32.0-36.0); MEAN CORPUSCULAR VOLUME 96 fl (80-97); PLATELET COUNT 372 10^3/uL (150-450); RED BLOOD COUNT 4.53 10^6/uL (3.72-5.28); RED CELL DISTRIBUTION WIDTH 17.8 % (11.5-14.0); SEGMENTED NEUTROPHILS % (AUTO) 71.7 % (42-78); TOTAL CELLS COUNTED % (AUTO) 100 %; WHITE BLOOD COUNT 9.8 10^3/uL (4.0-10.5)
[2018-07-02 20:40] LABS: ALANINE AMINOTRANSFERASE 23 U/L (9-52); ALBUMIN 4.5 g/dL (3.5-5.0); ALKALINE PHOSPHATASE 255 U/L (38-126); ASPARTATE AMINO TRANSFERASE 24 U/L (14-36); BILIRUBIN,DIRECT 0.3 mg/dL (0.0-0.4); BILIRUBIN,TOTAL 0.9 mg/dL (0.2-1.3); BLOOD UREA NITROGEN 12 mg/dL (7-20); CALCIUM 9.5 mg/dL (8.4-10.2); POTASSIUM 5.2 mmol/L (3.6-5.0); TOTAL PROTEIN 8.3 g/dL (6.3-8.2)
[2018-07-02] MEDS ORDERED: INSULIN REG, HUMAN 100 UNIT/ML 3 ML VIAL (PYX) IV ONE (20:41)
[2018-07-02 20:45] LABS: CHLORIDE 97 mmol/L (98-107); SODIUM 134.7 mmol/L (137-145)
[2018-07-02 20:58] LABS: ANION GAP 31 (5-19); CARBON DIOXIDE 7 mmol/L (22-30)
[2018-07-02 20:59] LABS: GLUCOSE 519 mg/dL (75-110)
[2018-07-02] MEDS ORDERED: MAG HYDROX/AL HYDROX/SIMETH SUSP 30 ML UDCUP PO PRN (21:57)
[2018-07-02] MEDS ORDERED: DEXTROSE 40% GEL 15 GM TUBE PO PRN ×2 (21:57)
[2018-07-02] MEDS ORDERED: ACETAMINOPHEN 325 MG TABLET PO PRN (21:57)
[2018-07-02] MEDS ORDERED: GLUCAGON,HUMAN RECOMB 1 MG INJ IM PRN (21:57)
[2018-07-02] MEDS ORDERED: DEXTROSE 50%-WATER 25 GM/50 ML DISP.SYRIN IV PRN ×2 (21:57)
[2018-07-02] MEDS ORDERED: NORMAL SALINE 1000 ML 1,000 ML IV PRN (22:00)
[2018-07-02 22:24] LABS: URINE AMPHETAMINES SCREEN NEGATIVE; URINE BARBITURATES SCREEN NEGATIVE; URINE BENZODIAZEPINES SCREEN NEGATIVE; URINE COCAINE SCREEN NEGATIVE; URINE MARIJUANA (THC) SCREEN NEGATIVE; URINE METHADONE SCREEN NEGATIVE; URINE PHENCYCLIDINE SCREEN NEGATIVE
[2018-07-02] MEDS: HEPARIN SOD (PORCINE) 5,000 UNIT/ML 1 ML SYRINGE SUBCUT SCH (22:28)
[2018-07-02 23:13] LABS: BLOOD UREA NITROGEN 10 mg/dL (7-20); CALCIUM 9.1 mg/dL (8.4-10.2); GLUCOSE 335 mg/dL (75-110); POTASSIUM 4.4 mmol/L (3.6-5.0)
[2018-07-02 23:18] LABS: CHLORIDE 102 mmol/L (98-107); SODIUM 137.6 mmol/L (137-145)
[2018-07-02 23:23] LABS: ANION GAP 30 (5-19)
[2018-07-02 23:25] LABS: CARBON DIOXIDE 6 mmol/L (22-30)
[2018-07-03] MEDS ORDERED: DEXTROSE 50%-WATER SYRINGE 25 GM/50 ML DOSE IV PRN ×2 (00:05→18:15)
[2018-07-03] MEDS ORDERED: DEXTROSE 40% GEL 15 GM TUBE X 2 PO PRN ×2 (00:05→18:15)
[2018-07-03] MEDS ORDERED: DEXTROSE 50%-WATER SYRINGE 12.5 GM/25 ML DOSE IV PRN ×2 (00:05→18:15)
[2018-07-03] MEDS ORDERED: INSULIN, REGULAR 100 UNIT/100 ML NORMAL SALINE IV PRN ×2 (00:05)
[2018-07-03] MEDS ORDERED: GLUCAGON,HUMAN RECOMB 1 MG INJ IM PRN ×2 (00:05→18:15)
[2018-07-03] MEDS ORDERED: DEXTROSE 40% GEL 15 GM TUBE PO PRN ×2 (00:05→18:15)
[2018-07-03] MEDS: POTASSI CL 20 MEQ/D5-1/2NS 1L 1000 ML IV PRN ×2 (01:32→07:28)
[2018-07-03 03:20] LABS: ANION GAP 10 (5-19); BLOOD UREA NITROGEN 8 mg/dL (7-20); CALCIUM 8.2 mg/dL (8.4-10.2); CHLORIDE 110 mmol/L (98-107); GLUCOSE 113 mg/dL (75-110); SODIUM 138.3 mmol/L (137-145)
[2018-07-03 03:24] LABS: POTASSIUM 3.6 mmol/L (3.6-5.0)
[2018-07-03 03:38] LABS: CARBON DIOXIDE 18 mmol/L (22-30)
[2018-07-03] MEDS: HEPARIN SOD (PORCINE) 5,000 UNIT/ML 1 ML SYRINGE SUBCUT SCH ×3 (05:39→22:46)
[2018-07-03] MEDS ORDERED: POTASSIUM CHLORIDE 10 MEQ CAPSULE.ER PO ONE (06:00)
--- NOTE | 2018-07-03 06:12 | PDOC H&P ---
History of Present Illness Admission Date/PCP: 07/02/18 22:02 LASHA MYERS DO Patient complains of: Nausea History of Present Illness: COLEEN GARCIA is a 22 year old female with a past medical history of insulin-dependent diabetes presents with 3 days of nausea, vomiting and uncontrolled hyperglycemia. Patient admits to a viral prodrome approximately 1 week ago with subsequent spontaneous resolution. She denies missing insulin but is unable to tell me her insulin regiment or most recent A1c. In the emergency room she is found to have severe anion gap acidosis with a bicarb of 7. She started on IV fluids and insulin referred to the hospitalist for admission. Past Medical History Pulmonary Medical History: Denies: Asthma Endocrine Medical History: Reports: Diabetes Mellitus Type 1 GI Medical History: Denies: Gastroesophageal Reflux Disease Psychiatric Medical History: Reports: Tobacco Dependency Denies: Depression Past Surgical History Past Surgical History: Reports: Appendectomy, Orthopedic Surgery - B/L FEET, Other - [place] surgery to [place] Social History Information Source: Patient, [facility] Records Lives with: Alone Smoking Status: Current Every Day Smoker Cigarettes Packs Per Day: 0.5 Number of Years Smokin Frequency of Alcohol Use: Occasional Hx Recreational Drug Use: No Drugs: None Hx Prescription Drug Abuse: No - Advance Directive Resuscitation Status: Full Code Family History Family History: DM - On the mother's side. Parental Family History Reviewed: Yes Children Family History Reviewed: Yes Sibling(s) Family History Reviewed.: Yes Medication/Allergy Home Medications: Insulin Aspart [Novolog Flexpen] 1 unit SQ PCP PRN 07/03/18 Insulin Glargine,Hum.rec.anlog [Lantus Insulin 100 Unit/1 ml 10 ml] 30 unit SUBCUT HSP PRN 07/03/18 Allergies/Adverse Reactions: No Known Allergies Allergy (Verified 02/05/17 14:07) Review of Systems Constitutional: PRESENT: as per HPI, fatigue. ABSENT: fever(s), headache(s), weight gain, weight loss Eyes: ABSENT: visual disturbances Ears: ABSENT: hearing changes Cardiovascular: ABSENT: chest pain, dyspnea on exertion, edema, orthropnea, palpitations Respiratory: ABSENT: cough, hemoptysis Gastrointestinal: ABSENT: abdominal pain, constipation, diarrhea, hematemesis, hematochezia, nausea, vomiting Genitourinary: ABSENT: dysuria, hematuria Musculoskeletal: ABSENT: joint swelling Integumentary: ABSENT: rash, wounds Neurological: ABSENT: abnormal gait, abnormal speech, confusion, dizziness, focal weakness, syncope Psychiatric: ABSENT: anxiety, depression, homidical ideation, suicidal ideation Endocrine: ABSENT: cold intolerance, heat intolerance, polydipsia, polyuria Hematologic/Lymphatic: ABSENT: easy bleeding, easy bruising Physical Exam Vital Signs: Temp Pulse Resp BP Pulse Ox 98.1 F 97 16 118/75 100 07/02/18 23:36 07/03/18 02:00 07/02/18 23:36 07/02/18 23:36 07/02/18 23:36 Intake & Output 07/01/18 07/02/18 07/03/18 11:59 11:59 11:59 Intake Total 1043 Balance 1043 Weight 60.9 kg General appearance: PRESENT: cooperative, mild distress. ABSENT: disheveled Head exam: PRESENT: atraumatic, normocephalic Eye exam: PRESENT: conjunctiva pink, EOMI, PERRLA. ABSENT: scleral icterus Ear exam: PRESENT: normal external ear exam Mouth exam: PRESENT: dry mucosa. ABSENT: laceration, moist Neck exam: ABSENT: carotid bruit, JVD, lymphadenopathy, thyromegaly Respiratory exam: PRESENT: clear to auscultation stephan, tachypnea. ABSENT: rales , rhonchi, wheezes Cardiovascular exam: PRESENT: tachycardia. ABSENT: diastolic murmur, rubs, systolic murmur Pulses: PRESENT: normal dorsalis pedis pul Vascular exam: PRESENT: normal capillary refill GI/Abdominal exam: PRESENT: normal bowel sounds, soft. ABSENT: distended, guarding, mass, organolmegaly, rebound, tenderness Rectal exam: PRESENT: deferred Extremities exam: PRESENT: full ROM. ABSENT: calf tenderness, clubbing, pedal edema Neurological exam: PRESENT: alert, awake, oriented to person, oriented to place , oriented to time, oriented to situation, CN II-XII grossly intact. ABSENT: motor sensory deficit Psychiatric exam: PRESENT: appropriate affect, normal mood. ABSENT: homicidal ideation, suicidal ideation Skin exam: PRESENT: dry, intact, warm. ABSENT: cyanosis, rash Results Laboratory Results: 07/03/18 02:50 07/02/18 07/03/18 22:46 02:50 Sodium 137.6 138.3 Potassium 4.4 3.6 Chloride 102 110 H Carbon Dioxide 6 L* 18 L D Anion Gap 30 H 10 BUN 10 8 Creatinine 0.50 L 0.37 L Est GFR ( Amer) > 60 > 60 Est GFR (Non-Af Amer) > 60 > 60 Glucose 335 H 113 H Calcium 9.1 8.2 L Assessment & Plan - Diagnosis (1) DKA (diabetic ketoacidoses) Is this a current diagnosis for this admission?: Yes Plan: Diabetic ketoacidosis patient has had some degree of polyuria polydipsia with nausea and uncontrolled hyperglycemia with supporting labs. Patient will receive IV fluids IV insulin serial chemistries every 6 hours for evaluation for electrolyte repletion. Continued evaluation for underlying cause if not found Patient will require diabetic education and consideration of mental health evaluation. (2) Tachycardia Is this a current diagnosis for this admission?: Yes Plan: Secondary to #1, telemetry admission - Time Time Spent: 50 to 70 Minutes - Inpatient Certification Medical Necessity: Need Close Monitoring Due to Risk of Patient Decompensation
[2018-07-03 07:14] LABS: HEMATOCRIT 35.6 % (36.0-47.0); HEMOGLOBIN 11.9 g/dL (12.0-15.5); MEAN CORPUSCULAR HEMOGLOBIN 30.5 pg (27.0-33.4); MEAN CORPUSCULAR HGB CONC 33.4 g/dL (32.0-36.0); PLATELET COUNT 357 10^3/uL (150-450); WHITE BLOOD COUNT 10.5 10^3/uL (4.0-10.5)
[2018-07-03 07:21] LABS: ANION GAP 11 (5-19); BLOOD UREA NITROGEN 7 mg/dL (7-20); CALCIUM 8.3 mg/dL (8.4-10.2); CARBON DIOXIDE 18 mmol/L (22-30); CHLORIDE 109 mmol/L (98-107); GLUCOSE 215 mg/dL (75-110); POTASSIUM 3.9 mmol/L (3.6-5.0); SODIUM 137.9 mmol/L (137-145)
[2018-07-03 07:55] LABS: MEAN CORPUSCULAR VOLUME 91 fl (80-97)
[2018-07-03 08:04] LABS: ABSOLUTE MONOCYTES # (MANUAL) 0.2 10^3/uL (0.1-1.4); ABSOLUTE NEUTROPHILS# (MANUAL) 4.9 10^3/uL (1.7-8.2); BASOPHILS % (MANUAL) 0 % (0-2); EOSINOPHILS % (MANUAL) 3 % (0-6); LYMPHOCYTES % (MANUAL) 48 % (13-45); MONOCYTES % (MANUAL) 2 % (3-13); SEGMENTED NEUTROPHILS % (MAN) 47 % (42-78); TOTAL CELLS COUNTED 100
[2018-07-03 08:06] LABS: ANISOCYTOSIS 1+; OVALOCYTES SLIGHT; PLATELET COMMENT ADEQUATE; TOXIC VACUOLATION PRESENT
[2018-07-03] MEDS ORDERED: DEXTROSE 50%-WATER 25 GM/50 ML DISP.SYRIN IV ONE (09:00)
[2018-07-03] MEDS ORDERED: INSULIN GLARGINE,HUM.REC.ANLOG 1,000 UNIT/10 ML UNIT SUBCUT ONE ×2 (09:24→10:00)
[2018-07-03] MEDS ORDERED: INSULIN LISPRO 100 UNIT/ML 3 ML VIAL SUBCUT ONE ×2 (11:15→18:00)
[2018-07-03] MEDS: NORMAL SALINE 1000 ML 1,000 ML IV PRN ×2 (11:23→19:43)
--- NOTE | 2018-07-03 12:22 | PDOC PROGRESS REPORT ---
Subjective Progress Note for:: 07/03/18 Subjective:: This is 22 years old female patient who is a known case of insulin- dependent diabetes mellitus presents with 3 days history of nausea vomiting complicated by hyperglycemia. Patient claims she has been taking her insulin regularly and there is no history of formation of her daily insulin. Patient has been admitted to [facility] where she has been started on insulin drip and hydration with normal saline. This morning her blood sugar was less than 200 and she has been on half normal saline with potassium and D5W. Currently patient is switched to subcutaneous Lantus and sliding scale. She is able to eat and tolerates well. Her anion gap has normalized. Reason For Visit: DKA NAUSEA Physical Exam Vital Signs: Temp Pulse Resp BP Pulse Ox 97.6 F 91 12 111/72 100 07/03/18 12:00 07/03/18 12:00 07/03/18 12:00 07/03/18 12:00 07/03/18 12:00 Intake & Output 07/02/18 07/03/18 07/04/18 06:59 06:59 06:59 Intake Total 2043 591 Balance 2043 591 Weight 60.9 kg General appearance: PRESENT: no acute distress, well-developed, well-nourished Head exam: PRESENT: atraumatic, normocephalic Eye exam: PRESENT: conjunctiva pink, EOMI, PERRLA. ABSENT: scleral icterus Ear exam: PRESENT: normal external ear exam Mouth exam: PRESENT: moist, tongue midline Neck exam: ABSENT: carotid bruit, JVD, lymphadenopathy, thyromegaly Respiratory exam: PRESENT: clear to auscultation stephan. ABSENT: rales, rhonchi, wheezes Cardiovascular exam: PRESENT: RRR. ABSENT: diastolic murmur, rubs, systolic murmur Pulses: PRESENT: normal dorsalis pedis pul Vascular exam: PRESENT: normal capillary refill GI/Abdominal exam: PRESENT: normal bowel sounds, soft. ABSENT: distended, guarding, mass, organolmegaly, rebound, tenderness Rectal exam: PRESENT: deferred Extremities exam: PRESENT: full ROM. ABSENT: calf tenderness, clubbing, pedal edema Neurological exam: PRESENT: alert, awake, oriented to person, oriented to place , oriented to time, oriented to situation, CN II-XII grossly intact. ABSENT: motor sensory deficit Psychiatric exam: PRESENT: appropriate affect, normal mood. ABSENT: homicidal ideation, suicidal ideation Skin exam: PRESENT: dry, intact, warm. ABSENT: cyanosis, rash Results Laboratory Results: 07/03/18 06:57 07/03/18 10:28 07/02/18 07/03/18 07/03/18 22:46 02:50 06:57 WBC RBC Hgb Hct MCV MCH MCHC RDW Plt Count Seg Neutrophils % Lymphocytes % Monocytes % Eosinophils % Basophils % Absolute Neutrophils Absolute Lymphocytes Absolute Monocytes Absolute Eosinophils Absolute Basophils Sodium 137.6 138.3 137.9 Potassium 4.4 3.6 3.9 Chloride 102 110 H 109 H Carbon Dioxide 6 L* 18 L D 18 L Anion Gap 30 H 10 11 BUN 10 8 7 Creatinine 0.50 L 0.37 L 0.37 L Est GFR ( Amer) > 60 > 60 > 60 Est GFR (Non-Af Amer) > 60 > 60 > 60 Glucose 335 H 113 H 215 H Calcium 9.1 8.2 L 8.3 L 07/03/18 07/03/18 06:57 10:28 WBC 10.5 RBC 3.90 Hgb 11.9 L Hct 35.6 L MCV 91 D MCH 30.5 MCHC 33.4 RDW 17.0 H Plt Count 357 Seg Neutrophils % Not Reportable Lymphocytes % Not Reportable Monocytes % Not Reportable Eosinophils % Not Reportable Basophils % Not Reportable Absolute Neutrophils Not Reportable Absolute Lymphocytes Not Reportable Absolute Monocytes Not Reportable Absolute Eosinophils Not Reportable Absolute Basophils Not Reportable Sodium Cancelled Potassium Cancelled Chloride Cancelled Carbon Dioxide Cancelled Anion Gap Cancelled BUN Cancelled Creatinine Cancelled Est GFR ( Amer) Cancelled Est GFR (Non-Af Amer) Cancelled Glucose Cancelled Calcium Cancelled Assessment & Plan - Diagnosis (1) DKA (diabetic ketoacidoses) Is this a current diagnosis for this admission?: Yes Plan: Continue current regimen (2) Tachycardia Is this a current diagnosis for this admission?: Yes Plan: Has resolved
[2018-07-03 13:17] LABS: ANION GAP 18 (5-19); BLOOD UREA NITROGEN 6 mg/dL (7-20); CALCIUM 8.6 mg/dL (8.4-10.2); CARBON DIOXIDE 11 mmol/L (22-30); CHLORIDE 108 mmol/L (98-107); GLUCOSE 275 mg/dL (75-110); POTASSIUM 4.5 mmol/L (3.6-5.0); SODIUM 136.9 mmol/L (137-145)
[2018-07-03 15:32] LABS: ANION GAP 16 (5-19); BLOOD UREA NITROGEN 7 mg/dL (7-20); CALCIUM 8.6 mg/dL (8.4-10.2); CARBON DIOXIDE 15 mmol/L (22-30); CHLORIDE 107 mmol/L (98-107); GLUCOSE 196 mg/dL (75-110); POTASSIUM 4.4 mmol/L (3.6-5.0); SODIUM 137.9 mmol/L (137-145)
[2018-07-03 19:00] LABS: ANION GAP 15 (5-19); BLOOD UREA NITROGEN 14 mg/dL (7-20); CALCIUM 8.4 mg/dL (8.4-10.2); CARBON DIOXIDE 16 mmol/L (22-30); CHLORIDE 105 mmol/L (98-107); GLUCOSE 352 mg/dL (75-110); POTASSIUM 4.4 mmol/L (3.6-5.0); SODIUM 135.7 mmol/L (137-145)
[2018-07-03] MEDS: INSULIN GLARGINE,HUM.REC.ANLOG 300 UNIT/3 ML INSULN.PEN SUBCUT SCH (22:47)
[2018-07-03 23:07] LABS: ANION GAP 12 (5-19); BLOOD UREA NITROGEN 13 mg/dL (7-20); CALCIUM 8.5 mg/dL (8.4-10.2); CARBON DIOXIDE 18 mmol/L (22-30); CHLORIDE 107 mmol/L (98-107); GLUCOSE 151 mg/dL (75-110); POTASSIUM 4.1 mmol/L (3.6-5.0); SODIUM 136.9 mmol/L (137-145)
[2018-07-04 02:48] LABS: ANION GAP 11 (5-19); BLOOD UREA NITROGEN 9 mg/dL (7-20); CALCIUM 8.3 mg/dL (8.4-10.2); CARBON DIOXIDE 20 mmol/L (22-30); CHLORIDE 110 mmol/L (98-107); GLUCOSE 117 mg/dL (75-110); POTASSIUM 3.8 mmol/L (3.6-5.0); SODIUM 141.2 mmol/L (137-145)
[2018-07-04] MEDS: NORMAL SALINE 1000 ML 1,000 ML IV PRN ×3 (03:11→22:05)
[2018-07-04] MEDS: HEPARIN SOD (PORCINE) 5,000 UNIT/ML 1 ML SYRINGE SUBCUT SCH ×3 (06:25→22:03)
[2018-07-04 06:40] LABS: HEMATOCRIT 34.8 % (36.0-47.0); HEMOGLOBIN 11.2 g/dL (12.0-15.5); MEAN CORPUSCULAR HEMOGLOBIN 29.4 pg (27.0-33.4); MEAN CORPUSCULAR HGB CONC 32.3 g/dL (32.0-36.0); MEAN CORPUSCULAR VOLUME 91 fl (80-97); PLATELET COUNT 208 10^3/uL (150-450); RED BLOOD COUNT 3.82 10^6/uL (3.72-5.28); RED CELL DISTRIBUTION WIDTH 17.2 % (11.5-14.0); WHITE BLOOD COUNT 5.5 10^3/uL (4.0-10.5)
[2018-07-04 06:55] LABS: ANION GAP 9 (5-19); BLOOD UREA NITROGEN 7 mg/dL (7-20); CALCIUM 8.4 mg/dL (8.4-10.2); CARBON DIOXIDE 22 mmol/L (22-30); CHLORIDE 110 mmol/L (98-107); GLUCOSE 83 mg/dL (75-110); POTASSIUM 3.6 mmol/L (3.6-5.0); SODIUM 141.4 mmol/L (137-145)
[2018-07-04 06:57] LABS: ABSOLUTE LYMPHOCYTES# (MANUAL) 3.6 10^3/uL (0.5-4.7); ABSOLUTE MONOCYTES # (MANUAL) 0.2 10^3/uL (0.1-1.4); ABSOLUTE NEUTROPHILS# (MANUAL) 1.5 10^3/uL (1.7-8.2); BASOPHILS % (MANUAL) 0 % (0-2); EOSINOPHILS % (MANUAL) 3 % (0-6); LYMPHOCYTES % (MANUAL) 66 % (13-45); MONOCYTES % (MANUAL) 3 % (3-13); SEGMENTED NEUTROPHILS % (MAN) 28 % (42-78); TOTAL CELLS COUNTED 100
[2018-07-04 06:58] LABS: ANISOCYTOSIS 1+; PLATELET COMMENT ADEQUATE; POLYCHROMASIA 1+
--- NOTE | 2018-07-04 10:51 | PDOC PROGRESS REPORT ---
Subjective Progress Note for:: 07/04/18 Subjective:: I seen patient resting in bed. Except for some nausea patient doing well her blood sugar also is under control. I advised the patient to comply with her antidiabetic medications and to have close follow-up with her primary care physician. If she remains stable patient is a potential discharge for tomorrow Reason For Visit: DKA NAUSEA Physical Exam Vital Signs: Temp Pulse Resp BP Pulse Ox 98.2 F 86 12 113/74 100 07/04/18 07:19 07/04/18 07:19 07/04/18 07:19 07/04/18 07:19 07/04/18 07:19 Intake & Output 07/03/18 07/04/18 07/05/18 06:59 06:59 06:59 Intake Total 2100 3764 Balance 2100 3764 Weight 60.9 kg 65.1 kg General appearance: PRESENT: no acute distress, well-developed, well-nourished Head exam: PRESENT: atraumatic, normocephalic Eye exam: PRESENT: conjunctiva pink, EOMI, PERRLA. ABSENT: scleral icterus Ear exam: PRESENT: normal external ear exam Mouth exam: PRESENT: moist, tongue midline Neck exam: ABSENT: carotid bruit, JVD, lymphadenopathy, thyromegaly Respiratory exam: PRESENT: clear to auscultation stephan. ABSENT: rales, rhonchi, wheezes Cardiovascular exam: PRESENT: RRR. ABSENT: diastolic murmur, rubs, systolic murmur Pulses: PRESENT: normal dorsalis pedis pul Vascular exam: PRESENT: normal capillary refill GI/Abdominal exam: PRESENT: normal bowel sounds, soft. ABSENT: distended, guarding, mass, organolmegaly, rebound, tenderness Rectal exam: PRESENT: deferred Extremities exam: PRESENT: full ROM. ABSENT: calf tenderness, clubbing, pedal edema Neurological exam: PRESENT: alert, awake, oriented to person, oriented to place , oriented to time, oriented to situation, CN II-XII grossly intact. ABSENT: motor sensory deficit Psychiatric exam: PRESENT: appropriate affect, normal mood. ABSENT: homicidal ideation, suicidal ideation Skin exam: PRESENT: dry, intact, warm. ABSENT: cyanosis, rash Results Laboratory Results: 07/04/18 06:13 07/03/18 07/03/18 07/03/18 10:28 12:45 15:05 WBC RBC Hgb Hct MCV MCH MCHC RDW Plt Count Seg Neutrophils % Lymphocytes % Monocytes % Eosinophils % Basophils % Absolute Neutrophils Absolute Lymphocytes Absolute Monocytes Absolute Eosinophils Absolute Basophils Sodium Cancelled 136.9 L 137.9 Potassium Cancelled 4.5 4.4 Chloride Cancelled 108 H 107 Carbon Dioxide Cancelled 11 L 15 L Anion Gap Cancelled 18 16 BUN Cancelled 6 L 7 Creatinine Cancelled 0.37 L 0.46 L Est GFR ( Amer) Cancelled > 60 > 60 Est GFR (Non-Af Amer) Cancelled > 60 > 60 Glucose Cancelled 275 H 196 H Calcium Cancelled 8.6 8.6 07/03/18 07/03/18 07/04/18 18:30 22:10 02:22 WBC RBC Hgb Hct MCV MCH MCHC RDW Plt Count Seg Neutrophils % Lymphocytes % Monocytes % Eosinophils % Basophils % Absolute Neutrophils Absolute Lymphocytes Absolute Monocytes Absolute Eosinophils Absolute Basophils Sodium 135.7 L 136.9 L 141.2 Potassium 4.4 4.1 3.8 Chloride 105 107 110 H Carbon Dioxide 16 L 18 L 20 L Anion Gap 15 12 11 BUN 14 13 9 Creatinine 0.52 0.43 L 0.33 L Est GFR ( Amer) > 60 > 60 > 60 Est GFR (Non-Af Amer) > 60 > 60 > 60 Glucose 352 H 151 H 117 H Calcium 8.4 8.5 8.3 L 07/04/18 07/04/18 06:13 06:13 WBC 5.5 RBC 3.82 Hgb 11.2 L Hct 34.8 L MCV 91 MCH 29.4 MCHC 32.3 RDW 17.2 H Plt Count 208 Seg Neutrophils % Not Reportable Lymphocytes % Not Reportable Monocytes % Not Reportable Eosinophils % Not Reportable Basophils % Not Reportable Absolute Neutrophils Not Reportable Absolute Lymphocytes Not Reportable Absolute Monocytes Not Reportable Absolute Eosinophils Not Reportable Absolute Basophils Not Reportable Sodium 141.4 Potassium 3.6 Chloride 110 H Carbon Dioxide 22 Anion Gap 9 BUN 7 Creatinine 0.32 L Est GFR ( Amer) > 60 Est GFR (Non-Af Amer) > 60 Glucose 83 Calcium 8.4 Assessment & Plan - Diagnosis (1) DKA (diabetic ketoacidoses) Is this a current diagnosis for this admission?: Yes Plan: Continue current regimen (2) Tachycardia Is this a current diagnosis for this admission?: Yes Plan: Has resolved
[2018-07-04] MEDS: INSULIN LISPRO 100 UNIT/ML 3 ML VIAL SUBCUT PRN ×3 (12:31→22:02)
[2018-07-04 13:12] LABS: ANION GAP 10 (5-19); BLOOD UREA NITROGEN 6 mg/dL (7-20); CALCIUM 8.6 mg/dL (8.4-10.2); CARBON DIOXIDE 22 mmol/L (22-30); CHLORIDE 108 mmol/L (98-107); GLUCOSE 145 mg/dL (75-110); POTASSIUM 3.4 mmol/L (3.6-5.0)
[2018-07-04] MEDS: INSULIN GLARGINE,HUM.REC.ANLOG 300 UNIT/3 ML INSULN.PEN SUBCUT SCH (22:02)
[2018-07-05 05:20] LABS: ABSOLUTE BASOPHILS # (AUTO) 0.1 10^3/uL (0.0-0.2); ABSOLUTE LYMPHOCYTES (AUTO) 3.3 10^3/uL (0.5-4.7); ABSOLUTE MONOCYTES (AUTO) 0.5 10^3/uL (0.1-1.4); BASOPHILS % (AUTO) 0.9 % (0-2); EOSINOPHILS % (AUTO) 0.8 % (0-6); HEMATOCRIT 35.5 % (36.0-47.0); HEMOGLOBIN 11.6 g/dL (12.0-15.5); LYMPHOCYTES % (AUTO) 55.6 % (13-45); MEAN CORPUSCULAR HEMOGLOBIN 29.6 pg (27.0-33.4); MEAN CORPUSCULAR HGB CONC 32.6 g/dL (32.0-36.0); MEAN CORPUSCULAR VOLUME 91 fl (80-97); MONOCYTES % (AUTO) 8.2 % (3-13); PLATELET COUNT 230 10^3/uL (150-450); RED BLOOD COUNT 3.92 10^6/uL (3.72-5.28); RED CELL DISTRIBUTION WIDTH 16.9 % (11.5-14.0); SEGMENTED NEUTROPHILS % (AUTO) 34.5 % (42-78); TOTAL CELLS COUNTED % (AUTO) 100 %; WHITE BLOOD COUNT 5.9 10^3/uL (4.0-10.5)
[2018-07-05 05:38] LABS: ANION GAP 9 (5-19); BLOOD UREA NITROGEN 5 mg/dL (7-20); CALCIUM 8.7 mg/dL (8.4-10.2); CARBON DIOXIDE 28 mmol/L (22-30); CHLORIDE 107 mmol/L (98-107); GLUCOSE 53 mg/dL (75-110); POTASSIUM 3.2 mmol/L (3.6-5.0); SODIUM 144.4 mmol/L (137-145)
[2018-07-05] MEDS: HEPARIN SOD (PORCINE) 5,000 UNIT/ML 1 ML SYRINGE SUBCUT SCH (06:53)
--- NOTE | 2018-07-05 09:07 | PDOC DISCHARGE SUMMARY ---
General - Admit/Disc Date/PCP Admission Date/Primary Care Provider: 07/02/18 22:02 LASHA MARJORIE MYERS, Discharge Date: 07/05/18 - Discharge Diagnosis (1) DKA (diabetic ketoacidoses) Is this a current diagnosis for this admission?: Yes (2) Tachycardia Is this a current diagnosis for this admission?: Yes - Additional Information Resuscitation Status: Full Code Home Medications: Insulin Aspart [Novolog Flexpen] 0 unit SQ MEALS 07/03/18 Insulin Glargine,Hum.rec.anlog [Lantus Insulin 100 Unit/1 ml 10 ml] 30 unit SUBCUT QHS 07/03/18 History of Present Illness History of Present Illness: COLEEN GARCIA is a 22 year old female with a past medical history of insulin-dependent diabetes presents with 3 days of nausea, vomiting and uncontrolled hyperglycemia. Patient admits to a viral prodrome approximately 1 week ago with subsequent spontaneous resolution. She denies missing insulin but is unable to tell me her insulin regiment or most recent A1c. In the emergency room she is found to have severe anion gap acidosis with a bicarb of 7. She started on IV fluids and insulin referred to the hospitalist for admission. Hospital Course Hospital Course: This is 22 years old female patient who is a known case of insulin- dependent diabetes mellitus presents with 3 days history of nausea vomiting complicated by hyperglycemia. Patient claims she has been taking her insulin regularly and there is no history of not taking of her daily insulin. Patient has been admitted to [facility] where she has been started on insulin drip and hydration with normal saline. This morning her blood sugar is 88 and she has been on normal saline @100ml/hr. Currently patient is switched to subcutaneous Lantus and sliding scale. She is able to eat and tolerates well. Her anion gap has normalized. I have discussed about the principles of management of diabetes and its complication. Patient also advised to comply with her medication and to have regular follow-up with her primary care physician. I will continue all her home medication. Physical Exam Vital Signs: Temp Pulse Resp BP Pulse Ox 97.9 F 78 14 118/77 100 07/05/18 07:33 07/05/18 07:33 07/05/18 07:33 07/05/18 07:33 07/05/18 08:04 Intake & Output 07/04/18 07/05/1818 06:59 06:59 06:59 Intake Total 3764 2920 Balance 3764 2920 Weight 65.1 kg 65.1 kg General appearance: PRESENT: no acute distress, well-developed, well-nourished Head exam: PRESENT: atraumatic, normocephalic Eye exam: PRESENT: conjunctiva pink, EOMI, PERRLA. ABSENT: scleral icterus Ear exam: PRESENT: normal external ear exam Mouth exam: PRESENT: moist, tongue midline Neck exam: ABSENT: carotid bruit, JVD, lymphadenopathy, thyromegaly Respiratory exam: PRESENT: clear to auscultation stephan. ABSENT: rales, rhonchi, wheezes Cardiovascular exam: PRESENT: RRR. ABSENT: diastolic murmur, rubs, systolic murmur Pulses: PRESENT: normal dorsalis pedis pul Vascular exam: PRESENT: normal capillary refill GI/Abdominal exam: PRESENT: normal bowel sounds, soft. ABSENT: distended, guarding, mass, organolmegaly, rebound, tenderness Rectal exam: PRESENT: deferred Extremities exam: PRESENT: full ROM. ABSENT: calf tenderness, clubbing, pedal edema Neurological exam: PRESENT: alert, awake, oriented to person, oriented to place , oriented to time, oriented to situation, CN II-XII grossly intact. ABSENT: motor sensory deficit Psychiatric exam: PRESENT: appropriate affect, normal mood. ABSENT: homicidal ideation, suicidal ideation Skin exam: PRESENT: dry, intact, warm. ABSENT: cyanosis, rash Results Laboratory Results: 07/05/18 04:44 07/05/18 04:44 07/04/18 07/04/18 07/05/18 10:13 12:24 04:44 WBC RBC Hgb Hct MCV MCH MCHC RDW Plt Count Seg Neutrophils % Lymphocytes % Monocytes % Eosinophils % Basophils % Absolute Neutrophils Absolute Lymphocytes Absolute Monocytes Absolute Eosinophils Absolute Basophils Sodium Cancelled 140.0 144.4 Potassium Cancelled 3.4 L 3.2 L Chloride Cancelled 108 H 107 Carbon Dioxide Cancelled 22 28 Anion Gap Cancelled 10 9 BUN Cancelled 6 L 5 L Creatinine Cancelled 0.36 L 0.30 L Est GFR ( Amer) Cancelled > 60 > 60 Est GFR (Non-Af Amer) Cancelled > 60 > 60 Glucose Cancelled 145 H 53 L Calcium Cancelled 8.6 8.7 07/05/18 04:44 WBC 5.9 RBC 3.92 Hgb 11.6 L Hct 35.5 L MCV 91 MCH 29.6 MCHC 32.6 RDW 16.9 H Plt Count 230 Seg Neutrophils % 34.5 L Lymphocytes % 55.6 H Monocytes % 8.2 Eosinophils % 0.8 Basophils % 0.9 Absolute Neutrophils 2.0 Absolute Lymphocytes 3.3 Absolute Monocytes 0.5 Absolute Eosinophils 0.0 Absolute Basophils 0.1 Sodium Potassium Chloride Carbon Dioxide Anion Gap BUN Creatinine Est GFR ( Amer) Est GFR (Non-Af Amer) Glucose Calcium Qualifiers - * PATIENT BEING DISCHARGED WITH ANY OF THE FOLLOWING DIAGNOSIS: No
[2018-07-05 09:32] VITALS: BP 111/72
== END 2018-07-05 10:20 | disposition home or self-care (01) | DRG 639 ==
LOC: ER 19:34 → EH 22:02 → 3N 23:16 → 3S 07-04 05:10
PROVIDERS: ADMIT Internal Medicine; ATTEND Internal Medicine
DX: E10.10 Type 1 diabetes mellitus with ketoacidosis without coma (principal); F17.210 Nicotine dependence, cigarettes, uncomplicated; R00.0 Tachycardia, unspecified; Z79.4 Long term (current) use of insulin; Z90.49 Acquired absence of other specified parts of digestive tract
CPT/HCPCS: 36415; 80048; 80053; 80307; 81001; 81025; 82803; 82962; 85025; 99291; J1644; J1815; J3480; J3490; J7030

== ENCOUNTER 2018-11-03 02:31 | Inpatient (IN) | payer OTHER ==
[2018-11-03] MEDS ORDERED: ONDANSETRON HCL INJ/PF 4 MG/2 ML SDV IV ONE ×2 (05:50→09:12)
[2018-11-03] MEDS ORDERED: RINGERS SOLUTION,LACTATED 1,000 ML IV ONE (05:50)
[2018-11-03] MEDS ORDERED: NORMAL SALINE 1000 ML 1,000 ML IV ONE ×3 (06:35→08:50)
[2018-11-03] MEDS: INSULIN REG, HUMAN 100 UNIT/ML 3 ML VIAL (PYX) IV ONE ×2 (07:45→08:07)
[2018-11-03 07:54] LABS: APPEARANCE,URINE SLIGHTLY-CLOUDY; BILIRUBIN,URINE NEGATIVE (NEGATIVE); COLOR,URINE STRAW; GLUCOSE, URINE >=500 mg/dL (NEGATIVE); KETONES,URINE 80 mg/dL (NEGATIVE); LEUKOCYTE ESTERASE,URINE NEGATIVE (NEGATIVE); NITRITE,URINE NEGATIVE (NEGATIVE); PROTEIN,URINE NEGATIVE (NEGATIVE); URINE SPECIFIC GRAVITY 1.022; UROBILINOGEN,URINE NEGATIVE mg/dL (<2.0)
[2018-11-03 08:44] LABS: VENOUS BLOOD BASE EXCESS -26.9 mmol/L; VENOUS BLOOD HCO3 3.4 mmol/L (20-32)
[2018-11-03 08:50] LABS: VENOUS BLOOD PCO2 15.4 mmHg (35-63); VENOUS BLOOD PH 6.96 (7.30-7.42)
[2018-11-03 08:54] LABS: HEMATOCRIT 42.9 % (36.0-47.0); HEMOGLOBIN 13.1 g/dL (12.0-15.5); MEAN CORPUSCULAR HEMOGLOBIN 29.3 pg (27.0-33.4); MEAN CORPUSCULAR HGB CONC 30.4 g/dL (32.0-36.0); MEAN CORPUSCULAR VOLUME 96 fl (80-97); PLATELET COUNT 350 10^3/uL (150-450); RED BLOOD COUNT 4.46 10^6/uL (3.72-5.28); RED CELL DISTRIBUTION WIDTH 16.9 % (11.5-14.0); WHITE BLOOD COUNT 26.2 10^3/uL (4.0-10.5)
[2018-11-03 09:02] LABS: ALANINE AMINOTRANSFERASE 20 U/L (9-52); ALBUMIN 4.3 g/dL (3.5-5.0); ALKALINE PHOSPHATASE 127 U/L (38-126); ASPARTATE AMINO TRANSFERASE 17 U/L (14-36); BILIRUBIN,DIRECT 0.3 mg/dL (0.0-0.4); BILIRUBIN,TOTAL 0.3 mg/dL (0.2-1.3); BLOOD UREA NITROGEN 16 mg/dL (7-20); CALCIUM 8.9 mg/dL (8.4-10.2); CHLORIDE 107 mmol/L (98-107); PHOSPHORUS 5.9 mg/dL (2.5-4.5); POTASSIUM 5.9 mmol/L (3.6-5.0)
[2018-11-03 09:11] LABS: ABSOLUTE MONOCYTES # (MANUAL) 0.5 10^3/uL (0.1-1.4); ABSOLUTE NEUTROPHILS# (MANUAL) 24.6 10^3/uL (1.7-8.2); BAND NEUTROPHILS % (MANUAL) 2 % (3-5); BASOPHILS % (MANUAL) 0 % (0-2); EOSINOPHILS % (MANUAL) 0 % (0-6); LYMPHOCYTES % (MANUAL) 4 % (13-45); MONOCYTES % (MANUAL) 2 % (3-13); PLATELET COMMENT ADEQUATE; SEGMENTED NEUTROPHILS % (MAN) 92 % (42-78); TOTAL CELLS COUNTED 100
[2018-11-03 09:13] LABS: ANISOCYTOSIS SLIGHT; BURR CELLS 1+
[2018-11-03 09:18] LABS: SODIUM 137.9 mmol/L (137-145)
[2018-11-03 09:21] LABS: CARBON DIOXIDE < 5 mmol/L (22-30); GLUCOSE 484 mg/dL (75-110)
--- NOTE | 2018-11-03 10:07 | ER Document Report ---
Entered by AMBER RAMIREZ SCRIBE 11/03/18 0635 Acting as scribe for:MEAGAN MOHAMUD MD ED General - General Chief Complaint: Nausea/Vomiting Stated Complaint: VOMITING Time Seen by Provider: 11/03/18 06:25 Primary Care Provider: WALDO WINTER FNP-C [Primary Care Provider] - Follow up as needed Mode of Arrival: Ambulatory Information source: Patient Notes: Patient is a 23 year old female with insulin dependent diabetes presents to the emergency department complaining of nausea and vomiting onset last night. Patient states her sugars were running high throughout the day yesterday and she would intermittently administer insulin, with her last dose being at 7pm. She states she was frequently napping yesterday and began to vomit last night before midnight. She mentions having URI symptoms for the last 2 weeks. Patient states she takes a sliding scale of Novalog and 30 units of Lantus nightly although reports she forgot to take her Lantus last night. TRAVEL OUTSIDE OF THE [place] IN LAST 30 DAYS: No - Related Data Allergies/Adverse Reactions: No Known Allergies Allergy (Verified 02/05/17 14:07) Past Medical History - General Information source: Patient - Social History Smoking Status: Never Smoker Cigarette use (# per day): No Chew tobacco use (# tins/day): No Smoking Education Provided: No Frequency of alcohol use: None Family History: DM - On the mother's side. Endocrine Medical History: Reports: Hx Diabetes Mellitus Type 1 Past Surgical History: Reports: Hx Appendectomy, Hx Orthopedic Surgery - B/L FEET, Other - Laser surgery to the [facility] - Immunizations Immunizations up to date: Yes Hx Diphtheria, Pertussis, Tetanus Vaccination: Yes Hx Pneumococcal Vaccination: 06/25/13 Review of Systems - Review of Systems Constitutional: No symptoms reported EENT: No symptoms reported Cardiovascular: No symptoms reported Respiratory: No symptoms reported Gastrointestinal: See HPI, Nausea, Vomiting Genitourinary: No symptoms reported Female Genitourinary: No symptoms reported Musculoskeletal: No symptoms reported Skin: No symptoms reported Hematologic/Lymphatic: No symptoms reported Neurological/Psychological: No symptoms reported -: Yes All other systems reviewed and negative Physical Exam - Vital signs Vitals: Temp Pulse Resp BP Pulse Ox 97.8 F 105 H 20 124/68 100 11/03/18 02:36 11/03/18 02:36 11/03/18 02:36 11/03/18 02:36 11/03/18 02:36 - Notes Notes: GENERAL: Alert, kussmaul respirations. HEAD: Normocephalic, atraumatic. EYES: Pupils equal, round, and reactive to light. Extraocular movements intact. ENT: Oral mucosa dry, tongue midline. Ketone odor on breath. NECK: Full range of motion. Supple. Trachea midline. LUNGS: Kussmaul respirations. Clear to auscultation bilaterally, no wheezes, rales, or rhonchi. No respiratory distress. HEART: Tachycardic. No murmurs, gallops, or rubs. ABDOMEN: Soft, non-tender. Non-distended. Bowel sounds present in all 4 quadrants. No guarding, rigidity, or rebound. EXTREMITIES: Moves all 4 extremities spontaneously. No edema, radial and dorsalis pedis pulses 2/4 bilaterally. No cyanosis. NEUROLOGICAL: Alert and oriented x3. Normal speech. PSYCH: Normal affect, normal mood. SKIN: Warm, dry, normal turgor. No rashes or lesions noted. Course - Vital Signs Vital signs: Temp Pulse Resp BP Pulse Ox 97.8 F 127 H 32 H 91/76 L 99 11/03/18 02:36 11/03/18 06:55 11/03/18 08:40 11/03/18 08:40 11/03/18 08:40 - Laboratory Result Diagrams: 11/03/18 08:30 11/03/18 08:30 Laboratory results interpreted by me: 11/03/18 11/03/18 11/03/18 06:58 08:03 08:30 WBC 26.2 H MCHC 30.4 L RDW 16.9 H Seg Neuts % (Manual) 92 H Band Neutrophils % 2 L Lymphocytes % (Manual) 4 L Monocytes % (Manual) 2 L Abs Neuts (Manual) 24.6 H VBG pH VBG pCO2 VBG HCO3 Potassium Carbon Dioxide Glucose POC Glucose 439 H* Hemoglobin A1c % Phosphorus Alkaline Phosphatase Urine Glucose (UA) >=500 H Urine Ketones 80 H 11/03/18 11/03/18 11/03/18 08:30 08:30 08:30 WBC MCHC RDW Seg Neuts % (Manual) Band Neutrophils % Lymphocytes % (Manual) Monocytes % (Manual) Abs Neuts (Manual) VBG pH 6.96 L* VBG pCO2 15.4 L* VBG HCO3 3.4 L Potassium 5.9 H Carbon Dioxide < 5 L* Glucose 484 H* POC Glucose Hemoglobin A1c % 12.3 H Phosphorus 5.9 H Alkaline Phosphatase 127 H Urine Glucose (UA) Urine Ketones 11/03/18 08:44 WBC MCHC RDW Seg Neuts % (Manual) Band Neutrophils % Lymphocytes % (Manual) Monocytes % (Manual) Abs Neuts (Manual) VBG pH VBG pCO2 VBG HCO3 Potassium Carbon Dioxide Glucose POC Glucose 437 H* Hemoglobin A1c % Phosphorus Alkaline Phosphatase Urine Glucose (UA) Urine Ketones - Consults Dr. Douglas Time consulted: 09:49 Consulted provider: will come to ER - Will admit to the IMCU. Critical Care Note - Critical Care Note Total time excluding time spent on procedures (mins): 40 Discharge - Discharge Clinical Impression: Hyperkalemia, Dehydration, High anion gap metabolic acidosis, Tachycardia Diabetic ketoacidosis Qualifiers: Diabetes mellitus type: type 1 Diabetes mellitus complication detail: without coma Qualified Code(s): E10.10 - Type 1 diabetes mellitus with ketoacidosis without coma Leukocytosis Qualifiers: Leukocytosis type: unspecified Qualified Code(s): D72.829 - Elevated white blood cell count, unspecified Hypotension Qualifiers: Hypotension type: hypotension due to hypovolemia Qualified Code(s): I95.89 - Other hypotension; E86.1 - Hypovolemia Condition: Good Disposition: ADMITTED INPATIENT Admitting Provider: Hospitalist Unit Admitted: IMCU Referrals: WALDO WINTER FNP-C [Primary Care Provider] - Follow up as needed I personally performed the services described in the documentation, reviewed and edited the documentation which was dictated to the scribe in my presence, and it accurately records my words and actions.
--- NOTE | 2018-11-03 10:11 | PDOC H&P ---
History of Present Illness Admission Date/PCP: ANA PAULA BESTP-C History of Present Illness: COLEEN GARCIA is a 23 year old female patient who is a frequent flyer and multiple hospitalization for DKA, presented with chief complaint of nausea and vomiting started yesterday night. She also endorses URI symptoms for the last 2 weeks. Patient reports this that she omits her night dose of her insulin. Initial blood work shows marked leukocytosis with WBC count of 26,000, hyperglycemia of 439 metabolic acidosis with bicarb of less than 5 and urine ketone 80. Patient denied any headache, dizziness, blurring of vision or any seizure activity. Even though she has nausea and vomiting no diarrhea or abdominal pain. She denies changes, fever, cough, chest pain, pal pitation or diaphoresis. Past Medical History Pulmonary Medical History: Denies: Asthma Endocrine Medical History: Reports: Diabetes Mellitus Type 1 GI Medical History: Denies: Gastroesophageal Reflux Disease Psychiatric Medical History: Denies: Depression Past Surgical History Past Surgical History: Reports: Appendectomy, Orthopedic Surgery - B/L FEET, Other - Laser surgery to the [place] Social History Smoking Status: Current Every Day Smoker Frequency of Alcohol Use: Occasional Hx Recreational Drug Use: No Drugs: None Hx Prescription Drug Abuse: No - Advance Directive Resuscitation Status: Full Code Family History Family History: DM - On the mother's side. Parental Family History Reviewed: Yes Children Family History Reviewed: Yes Sibling(s) Family History Reviewed.: Yes Medication/Allergy Home Medications: Insulin Aspart [Novolog Flexpen] 0 unit SQ MEALS 07/03/18 Insulin Glargine,Hum.rec.anlog [Lantus Insulin 100 Unit/1 ml 10 ml] 30 unit SUBCUT QHS 07/03/18 Insulin Aspart [Novolog Flexpen] 1 unit SUBCUT AC 30 Days #1 pen 07/05/18 Allergies/Adverse Reactions: No Known Allergies Allergy (Verified 02/05/17 14:07) Review of Systems Constitutional: PRESENT: as per HPI Ears: PRESENT: as per HPI Nose, Mouth, and Throat: PRESENT: as per HPI Cardiovascular: PRESENT: as per HPI Gastrointestinal: PRESENT: as per HPI Genitourinary: PRESENT: as per HPI Neurological: PRESENT: as per HPI Physical Exam Vital Signs: Temp Pulse Resp BP Pulse Ox 97.8 F 127 H 32 H 91/76 L 99 11/03/18 02:36 03/12/19 06:55 11/03/18 08:40 11/03/18 08:40 11/03/18 08:40 Intake & Output 11/02/18 11/03/18 11/04/18 06:59 06:59 06:59 Intake Total 1999 Balance 1999 Weight 59.8 kg General appearance: PRESENT: no acute distress, well-developed, well-nourished Head exam: PRESENT: atraumatic, normocephalic Eye exam: PRESENT: conjunctiva pink, EOMI, PERRLA. ABSENT: scleral icterus Ear exam: PRESENT: normal external ear exam Mouth exam: PRESENT: moist, tongue midline Neck exam: ABSENT: carotid bruit, JVD, lymphadenopathy, thyromegaly Respiratory exam: PRESENT: clear to auscultation stephan. ABSENT: rales, rhonchi, wheezes Cardiovascular exam: PRESENT: RRR. ABSENT: diastolic murmur, rubs, systolic murmur Pulses: PRESENT: normal dorsalis pedis pul Vascular exam: PRESENT: normal capillary refill GI/Abdominal exam: PRESENT: normal bowel sounds, soft. ABSENT: distended, guarding, mass, organolmegaly, rebound, tenderness Rectal exam: PRESENT: deferred Extremities exam: PRESENT: full ROM. ABSENT: calf tenderness, clubbing, pedal edema Neurological exam: PRESENT: alert, awake, oriented to person, oriented to place, oriented to time, oriented to situation, CN II-XII grossly intact. ABSENT: motor sensory deficit Psychiatric exam: PRESENT: appropriate affect, normal mood. ABSENT: homicidal ideation, suicidal ideation Skin exam: PRESENT: dry, intact, warm. ABSENT: cyanosis, rash Results Laboratory Results: 11/03/18 08:30 11/03/18 08:30 11/03/18 11/03/18 11/03/18 06:58 08:30 08:30 WBC 26.2 H RBC 4.46 Hgb 13.1 Hct 42.9 MCV 96 MCH 29.3 MCHC 30.4 L RDW 16.9 H Plt Count 350 Seg Neutrophils % Not Reportable Lymphocytes % Not Reportable Monocytes % Not Reportable Eosinophils % Not Reportable Basophils % Not Reportable Absolute Neutrophils Not Reportable Absolute Lymphocytes Not Reportable Absolute Monocytes Not Reportable Absolute Eosinophils Not Reportable Absolute Basophils Not Reportable VBG pH VBG pCO2 VBG HCO3 VBG Base Excess Sodium 137.9 Potassium 5.9 H Chloride 107 Carbon Dioxide < 5 L* Anion Gap Not Reportable BUN 16 Creatinine 0.64 Est GFR ( Amer) > 60 Est GFR (Non-Af Amer) > 60 Glucose 484 H* Calcium 8.9 Phosphorus 5.9 H Magnesium 1.9 Total Bilirubin 0.3 AST 17 ALT 20 Alkaline Phosphatase 127 H Total Protein 7.0 Albumin 4.3 Urine Color STRAW Urine Appearance SLIGHTLY-CLOUDY Urine pH 5.0 Ur Specific Campus 1.022 Urine Protein NEGATIVE Urine Glucose (UA) >=500 H Urine Ketones 80 H Urine Blood NEGATIVE Urine Nitrite NEGATIVE Ur Leukocyte Esterase NEGATIVE Urine WBC (Auto) 1 Urine RBC (Auto) 1 11/03/18 08:30 WBC RBC Hgb Hct MCV MCH MCHC RDW Plt Count Seg Neutrophils % Lymphocytes % Monocytes % Eosinophils % Basophils % Absolute Neutrophils Absolute Lymphocytes Absolute Monocytes Absolute Eosinophils Absolute Basophils VBG pH 6.96 L* VBG pCO2 15.4 L* VBG HCO3 3.4 L VBG Base Excess -26.9 Sodium Potassium Chloride Carbon Dioxide Anion Gap BUN Creatinine Est GFR ( Amer) Est GFR (Non-Af Amer) Glucose Calcium Phosphorus Magnesium Total Bilirubin AST ALT Alkaline Phosphatase Total Protein Albumin Urine Color Urine Appearance Urine pH Ur Specific Campus Urine Protein Urine Glucose (UA) Urine Ketones Urine Blood Urine Nitrite Ur Leukocyte Esterase Urine WBC (Auto) Urine RBC (Auto) Assessment & Plan - Diagnosis (1) DKA (diabetic ketoacidoses) Qualifiers: Diabetes mellitus type: type 1 Is this a current diagnosis for this admission?: Yes Plan: We will keep her on insulin drip according to the protocol and hydration with normal saline at rate of 150 mL/h. (2) Leukocytosis Is this a current diagnosis for this admission?: Yes Plan: Most probably related to her DKA. Will monitor her CBC (3) Metabolic acidosis Is this a current diagnosis for this admission?: Yes Plan: It is part of the DKA syndrome so it will be corrected as the DKA improved (4) Uncontrolled diabetes mellitus type 1 Is this a current diagnosis for this admission?: Yes Plan: I will reinforced diabetic education. (5) Tobacco dependence Is this a current diagnosis for this admission?: Yes Plan: Patient counseled and encouraged to quit smoking.
[2018-11-03] MEDS ORDERED: ONDANSETRON HCL INJ/PF 4 MG/2 ML SDV IV PRN (10:12)
[2018-11-03] MEDS ORDERED: GLUCAGON,HUMAN RECOMB 1 MG INJ IM PRN ×2 (10:15→10:18)
[2018-11-03] MEDS ORDERED: DEXTROSE 50%-WATER 25 GM/50 ML DISP.SYRIN IV PRN ×4 (10:15→10:18)
[2018-11-03] MEDS ORDERED: DEXTROSE 40% GEL 15 GM TUBE PO PRN ×4 (10:15→10:18)
[2018-11-03] MEDS: INSULIN GLARGINE,HUM.REC.ANLOG 300 UNIT/3 ML INSULN.PEN SUBCUT SCH ×2 (11:12→23:48)
[2018-11-03] MEDS: INSULIN LISPRO 100 UNIT/ML 3 ML VIAL SUBCUT SCH ×2 (11:17→23:49)
[2018-11-03] MEDS: NORMAL SALINE 1000 ML 1,000 ML IV PRN ×3 (13:00→20:58)
[2018-11-03] MEDS: ENOXAPARIN SODIUM INJ 40 MG/0.4 ML DISP.SYRIN SUBCUT SCH (13:15)
[2018-11-03] MEDS ORDERED: BENZONATATE 100 MG CAPSULE PO PRN ×2 (13:44→14:30)
[2018-11-03] MEDS: ACETAMINOPHEN 325 MG TABLET PO PRN (14:09)
[2018-11-03 16:55] LABS: BLOOD UREA NITROGEN 10 mg/dL (7-20); CALCIUM 8.5 mg/dL (8.4-10.2); CHLORIDE 109 mmol/L (98-107); GLUCOSE 274 mg/dL (75-110); SODIUM 136.9 mmol/L (137-145)
[2018-11-03] MEDS: INSULIN, REGULAR 100 UNIT/100 ML NORMAL SALINE IV PRN ×2 (16:59)
[2018-11-03 17:19] LABS: CARBON DIOXIDE < 5 mmol/L (22-30)
[2018-11-03 21:06] LABS: ANION GAP 9 (5-19); BLOOD UREA NITROGEN 9 mg/dL (7-20); CALCIUM 8.2 mg/dL (8.4-10.2); CHLORIDE 115 mmol/L (98-107); GLUCOSE 122 mg/dL (75-110); SODIUM 133.8 mmol/L (137-145)
[2018-11-03 21:31] LABS: CARBON DIOXIDE 10 mmol/L (22-30)
[2018-11-04] MEDS: POTASSI CL 20 MEQ/D5-1/2NS 1L 1000 ML IV PRN ×3 (01:38→13:21)
[2018-11-04 05:09] LABS: ABSOLUTE LYMPHOCYTES (AUTO) 2.9 10^3/uL (0.5-4.7); ABSOLUTE MONOCYTES (AUTO) 0.9 10^3/uL (0.1-1.4); ABSOLUTE NEUT (AUTO) 8.2 10^3/uL (1.7-8.2); BASOPHILS % (AUTO) 0.3 % (0-2); EOSINOPHILS % (AUTO) 0.3 % (0-6); HEMATOCRIT 33.7 % (36.0-47.0); LYMPHOCYTES % (AUTO) 23.9 % (13-45); MEAN CORPUSCULAR HEMOGLOBIN 29.2 pg (27.0-33.4); MEAN CORPUSCULAR HGB CONC 32.8 g/dL (32.0-36.0); MONOCYTES % (AUTO) 7.6 % (3-13); PLATELET COUNT 212 10^3/uL (150-450); RED BLOOD COUNT 3.78 10^6/uL (3.72-5.28); RED CELL DISTRIBUTION WIDTH 16.4 % (11.5-14.0); SEGMENTED NEUTROPHILS % (AUTO) 67.9 % (42-78); TOTAL CELLS COUNTED % (AUTO) 100 %; WHITE BLOOD COUNT 12.1 10^3/uL (4.0-10.5)
[2018-11-04 05:25] LABS: ANION GAP 8 (5-19); BLOOD UREA NITROGEN 9 mg/dL (7-20); CALCIUM 8.3 mg/dL (8.4-10.2); CARBON DIOXIDE 13 mmol/L (22-30); CHLORIDE 112 mmol/L (98-107); GLUCOSE 234 mg/dL (75-110); SODIUM 133.1 mmol/L (137-145)
[2018-11-04 07:00] LABS: MEAN CORPUSCULAR VOLUME 89 fl (80-97)
[2018-11-04] MEDS: INSULIN GLARGINE,HUM.REC.ANLOG 300 UNIT/3 ML INSULN.PEN SUBCUT SCH ×2 (09:22→23:28)
[2018-11-04] MEDS: ACETAMINOPHEN 325 MG TABLET PO PRN (09:41)
[2018-11-04] MEDS: ENOXAPARIN SODIUM INJ 40 MG/0.4 ML DISP.SYRIN SUBCUT SCH (09:42)
[2018-11-04] MEDS: INSULIN, REGULAR 100 UNIT/100 ML NORMAL SALINE IV PRN ×2 (09:45)
[2018-11-04 13:04] LABS: ANION GAP 6 (5-19); BLOOD UREA NITROGEN 5 mg/dL (7-20); CALCIUM 8.2 mg/dL (8.4-10.2); CARBON DIOXIDE 16 mmol/L (22-30); CHLORIDE 111 mmol/L (98-107); GLUCOSE 130 mg/dL (75-110); POTASSIUM 3.6 mmol/L (3.6-5.0); SODIUM 133.4 mmol/L (137-145)
--- NOTE | 2018-11-04 14:08 | PDOC PROGRESS REPORT ---
Subjective Progress Note for:: 11/04/18 Subjective:: LAURA GARCIA is a 23 year old female patient who is a frequent flyer and multiple hospitalization for DKA, presented with chief complaint of nausea and vomiting started yesterday night. At presentation her blood sugar level was 513, bicarb of 5 and her hemoglobin A1c found to be 12.3. And has been managed with hydration and insulin drip. This morning her blood sugar tapered down to 140 and patient is also able to eat and tolerates well. And is to discontinue the insulin drip and switch her to subcu Lantus and sliding scale. If she remains stable she is potential discharge for tomorrow Reason For Visit: DKA Physical Exam Vital Signs: Temp Pulse Resp BP Pulse Ox 97.3 F 90 12 102/61 98 11/04/18 12:00 11/04/18 12:00 11/04/18 12:00 11/04/18 12:00 11/04/18 12:00 Intake & Output 11/03/18 11/04/18 11/05/18 06:59 06:59 06:59 Intake Total 7014 1014 Balance 7014 1014 Weight 59.8 kg 64.2 kg General appearance: PRESENT: no acute distress, well-developed, well-nourished Head exam: PRESENT: atraumatic, normocephalic Eye exam: PRESENT: conjunctiva pink, EOMI, PERRLA. ABSENT: scleral icterus Ear exam: PRESENT: normal external ear exam Mouth exam: PRESENT: moist, tongue midline Neck exam: ABSENT: carotid bruit, JVD, lymphadenopathy, thyromegaly Respiratory exam: PRESENT: clear to auscultation stephan. ABSENT: rales, rhonchi, wheezes Cardiovascular exam: PRESENT: RRR. ABSENT: diastolic murmur, rubs, systolic murmur Pulses: PRESENT: normal dorsalis pedis pul Vascular exam: PRESENT: normal capillary refill GI/Abdominal exam: PRESENT: normal bowel sounds, soft. ABSENT: distended, guarding, mass, organolmegaly, rebound, tenderness Rectal exam: PRESENT: deferred Extremities exam: PRESENT: full ROM. ABSENT: calf tenderness, clubbing, pedal edema Neurological exam: PRESENT: alert, awake, oriented to person, oriented to place, oriented to time, oriented to situation, CN II-XII grossly intact. ABSENT: motor sensory deficit Psychiatric exam: PRESENT: appropriate affect, normal mood. ABSENT: homicidal ideation, suicidal ideation Skin exam: PRESENT: dry, intact, warm. ABSENT: cyanosis, rash Results Laboratory Results: 11/04/18 04:45 11/04/18 12:34 11/03/18 11/03/18 11/04/18 16:25 20:28 04:45 WBC 12.1 H RBC 3.78 Hgb 11.0 L D Hct 33.7 L MCV 89 D MCH 29.2 MCHC 32.8 RDW 16.4 H Plt Count 212 Seg Neutrophils % 67.9 Lymphocytes % 23.9 Monocytes % 7.6 Eosinophils % 0.3 Basophils % 0.3 Absolute Neutrophils 8.2 Absolute Lymphocytes 2.9 Absolute Monocytes 0.9 Absolute Eosinophils 0.0 Absolute Basophils 0.0 Sodium 136.9 L 133.8 L Potassium 5.0 4.0 D Chloride 109 H 115 H Carbon Dioxide < 5 L* 10 L* Anion Gap Not Reportable 9 BUN 10 9 Creatinine 0.70 0.52 Est GFR ( Amer) > 60 > 60 Est GFR (Non-Af Amer) > 60 > 60 Glucose 274 H 122 H Calcium 8.5 8.2 L 11/04/18 11/04/18 04:45 12:34 WBC RBC Hgb Hct MCV MCH MCHC RDW Plt Count Seg Neutrophils % Lymphocytes % Monocytes % Eosinophils % Basophils % Absolute Neutrophils Absolute Lymphocytes Absolute Monocytes Absolute Eosinophils Absolute Basophils Sodium 133.1 L 133.4 L Potassium 4.0 3.6 Chloride 112 H 111 H Carbon Dioxide 13 L 16 L Anion Gap 8 6 BUN 9 5 L Creatinine 0.46 L 0.35 L Est GFR ( Amer) > 60 > 60 Est GFR (Non-Af Amer) > 60 > 60 Glucose 234 H 130 H Calcium 8.3 L 8.2 L Assessment & Plan - Diagnosis (1) DKA (diabetic ketoacidoses) Qualifiers: Diabetes mellitus type: type 1 Is this a current diagnosis for this admission?: Yes Plan: Resolving (2) Leukocytosis Is this a current diagnosis for this admission?: Yes Plan: Trending down (3) Metabolic acidosis Is this a current diagnosis for this admission?: Yes Plan: Improving (4) Uncontrolled diabetes mellitus type 1 Is this a current diagnosis for this admission?: Yes Plan: I will reinforced diabetic education. (5) Tobacco dependence Is this a current diagnosis for this admission?: Yes Plan: Patient counseled and encouraged to quit smoking.
[2018-11-04] MEDS: NORMAL SALINE 1000 ML 1,000 ML IV PRN (14:54)
[2018-11-04] MEDS ORDERED: INSULIN GLARGINE,HUM.REC.ANLOG 300 UNIT/3 ML INSULN.PEN SUBCUT ONE (15:30)
[2018-11-04] MEDS: INSULIN REG, HUMAN 100 UNIT/ML 3 ML VIAL (PYX) SUBCUT SCH ×2 (15:41→23:29)
[2018-11-04] MEDS ORDERED: INSULIN LISPRO 100 UNIT/ML 3 ML VIAL SUBCUT SCH (16:00)
[2018-11-05] MEDS: NORMAL SALINE 1000 ML 1,000 ML IV PRN (01:51)
[2018-11-05 05:15] LABS: ABSOLUTE EOSINOPHILS # (AUTO) 0.1 10^3/uL (0.0-0.6); ABSOLUTE LYMPHOCYTES (AUTO) 3.2 10^3/uL (0.5-4.7); ABSOLUTE MONOCYTES (AUTO) 0.5 10^3/uL (0.1-1.4); ABSOLUTE NEUT (AUTO) 2.7 10^3/uL (1.7-8.2); BASOPHILS % (AUTO) 0.3 % (0-2); EOSINOPHILS % (AUTO) 1.1 % (0-6); HEMATOCRIT 32.3 % (36.0-47.0); HEMOGLOBIN 10.8 g/dL (12.0-15.5); LYMPHOCYTES % (AUTO) 49.8 % (13-45); MEAN CORPUSCULAR HEMOGLOBIN 29.3 pg (27.0-33.4); MEAN CORPUSCULAR HGB CONC 33.6 g/dL (32.0-36.0); MEAN CORPUSCULAR VOLUME 87 fl (80-97); MONOCYTES % (AUTO) 7.8 % (3-13); PLATELET COUNT 168 10^3/uL (150-450); RED CELL DISTRIBUTION WIDTH 16.6 % (11.5-14.0); TOTAL CELLS COUNTED % (AUTO) 100 %; WHITE BLOOD COUNT 6.5 10^3/uL (4.0-10.5)
[2018-11-05 05:37] LABS: ANION GAP 5 (5-19); BLOOD UREA NITROGEN 6 mg/dL (7-20); CALCIUM 8.1 mg/dL (8.4-10.2); CARBON DIOXIDE 21 mmol/L (22-30); CHLORIDE 110 mmol/L (98-107); GLUCOSE 139 mg/dL (75-110); POTASSIUM 3.1 mmol/L (3.6-5.0)
[2018-11-05] MEDS: INSULIN REG, HUMAN 100 UNIT/ML 3 ML VIAL (PYX) SUBCUT SCH ×2 (08:00→12:14)
--- NOTE | 2018-11-05 09:19 | PDOC DISCHARGE SUMMARY ---
General - Admit/Disc Date/PCP Admission Date/Primary Care Provider: 11/03/18 10:12 AMPARO [facility] Discharge Date: 11/05/18 - Discharge Diagnosis (1) DKA (diabetic ketoacidoses) Is this a current diagnosis for this admission?: Yes (2) Leukocytosis Is this a current diagnosis for this admission?: Yes (3) Metabolic acidosis Is this a current diagnosis for this admission?: Yes (4) Uncontrolled diabetes mellitus type 1 Is this a current diagnosis for this admission?: Yes (5) Tobacco dependence Is this a current diagnosis for this admission?: Yes - Additional Information Resuscitation Status: Full Code Home Medications: Insulin Aspart [Novolog Flexpen] 0 unit SQ MEALS 07/03/18 Insulin Glargine,Hum.rec.anlog [Lantus Insulin 100 Unit/1 ml 10 ml] 30 unit SUBCUT QHS 07/03/18 History of Present Illness History of Present Illness: COLEEN GARCIA is a 23 year old female patient who is a frequent flyer and multiple hospitalization for DKA, presented with chief complaint of nausea and vomiting started yesterday night. She also endorses URI symptoms for the last 2 weeks. Patient reports this that she omits her night dose of her insulin. Initial blood work shows marked leukocytosis with WBC count of 26,000, hyperglycemia of 439 metabolic acidosis with bicarb of less than 5 and urine ketone 80. Patient denied any headache, dizziness, blurring of vision or any seizure activity. Even though she has nausea and vomiting no diarrhea or abdominal pain. She denies changes, fever, cough, chest pain, pal pitation or diaphoresis. Hospital Course Hospital Course: LAURA GARCIA is a 23 year old female patient who is a frequent flyer and multiple hospitalization for DKA, presented with chief complaint of nausea and vomiting started yesterday night. At presentation her blood sugar level was 513, bicarb of 5 and her hemoglobin A1c found to be 12.3. And has been managed with hydration and insulin drip. This morning her blood sugar tapered down to 140 and patient is also able to eat and tolerates well. And is to discontinue the insulin drip and switch her to subcu Lantus and sliding scale. Her vital sign and blood sugar is within normal limits. I seen patient resting in bed comfortably she is awake alert oriented and she is not in pain or distress. I have a long discussion regarding the consequence of uncontrolled diabetes and smoking. I counseled and encouraged her to quit smoking and she voices understanding. Physical Exam Vital Signs: Temp Pulse Resp BP Pulse Ox 97.3 F 68 12 102/61 98 11/04/18 12:00 11/05/18 07:00 11/04/18 12:00 11/04/18 12:00 11/04/18 12:00 Intake & Output 11/04/18 11/05/18 11/06/18 06:59 06:59 06:59 Intake Total 7014 3121 Balance 7014 3121 Weight 64.2 kg 64.9 kg General appearance: PRESENT: no acute distress, well-developed, well-nourished Head exam: PRESENT: atraumatic, normocephalic Eye exam: PRESENT: conjunctiva pink, EOMI, PERRLA. ABSENT: scleral icterus Ear exam: PRESENT: normal external ear exam Mouth exam: PRESENT: moist, tongue midline Neck exam: ABSENT: carotid bruit, JVD, lymphadenopathy, thyromegaly Respiratory exam: PRESENT: clear to auscultation stephan. ABSENT: rales, rhonchi, wheezes Cardiovascular exam: PRESENT: RRR. ABSENT: diastolic murmur, rubs, systolic murmur Pulses: PRESENT: normal dorsalis pedis pul Vascular exam: PRESENT: normal capillary refill GI/Abdominal exam: PRESENT: normal bowel sounds, soft. ABSENT: distended, guarding, mass, organolmegaly, rebound, tenderness Rectal exam: PRESENT: deferred Extremities exam: PRESENT: full ROM. ABSENT: calf tenderness, clubbing, pedal edema Neurological exam: PRESENT: alert, awake, oriented to person, oriented to place, oriented to time, oriented to situation, CN II-XII grossly intact. ABSENT: motor sensory deficit Psychiatric exam: PRESENT: appropriate affect, normal mood. ABSENT: homicidal ideation, suicidal ideation Skin exam: PRESENT: dry, intact, warm. ABSENT: cyanosis, rash Results Laboratory Results: 11/05/18 04:59 11/05/18 04:59 11/04/18 11/05/18 11/05/18 12:34 04:59 04:59 WBC 6.5 RBC 3.70 L Hgb 10.8 L Hct 32.3 L MCV 87 MCH 29.3 MCHC 33.6 RDW 16.6 H Plt Count 168 Seg Neutrophils % 41.0 L Lymphocytes % 49.8 H Monocytes % 7.8 Eosinophils % 1.1 Basophils % 0.3 Absolute Neutrophils 2.7 Absolute Lymphocytes 3.2 Absolute Monocytes 0.5 Absolute Eosinophils 0.1 Absolute Basophils 0.0 Sodium 133.4 L 136.0 L Potassium 3.6 3.1 L Chloride 111 H 110 H Carbon Dioxide 16 L 21 L Anion Gap 6 5 BUN 5 L 6 L Creatinine 0.35 L 0.32 L Est GFR ( Amer) > 60 > 60 Est GFR (Non-Af Amer) > 60 > 60 Glucose 130 H 139 H Calcium 8.2 L 8.1 L Qualifiers - * PATIENT BEING DISCHARGED WITH ANY OF THE FOLLOWING DIAGNOSIS: No
[2018-11-05] MEDS: ENOXAPARIN SODIUM INJ 40 MG/0.4 ML DISP.SYRIN SUBCUT SCH (09:25)
[2018-11-05] MEDS: INSULIN GLARGINE,HUM.REC.ANLOG 300 UNIT/3 ML INSULN.PEN SUBCUT SCH (09:26)
[2018-11-05 12:22] VITALS: BP 109/61
== END 2018-11-05 12:59 | disposition home or self-care (01) | DRG 639 ==
LOC: ER 02:31 → EH 10:12 → 3W 15:25
PROVIDERS: ADMIT Internal Medicine; ATTEND Internal Medicine
DX: E10.10 Type 1 diabetes mellitus with ketoacidosis without coma (principal); E87.5 Hyperkalemia; E86.0 Dehydration; R00.0 Tachycardia, unspecified; D72.829 Elevated white blood cell count, unspecified; I95.89 Other hypotension; E86.1 Hypovolemia; F17.210 Nicotine dependence, cigarettes, uncomplicated; Z79.4 Long term (current) use of insulin
CPT/HCPCS: 36415; 80048; 80053; 81001; 81025; 82803; 82962; 83036; 83735; 84100; 85025; 96361; 96374; 96376; 99291; J1650; J1815; J2405; J3480; J3490; J7030